=== PATIENT | female | born 1955 | race Caucasian/White ===

== ENCOUNTER 2018-07-11 06:24 | Outpatient (CLI) | payer OTHER, SELFPAY ==
[2018-07-12 13:10] LABS: Cholesterol 202 mg/dL (50-200); HDL Cholesterol 33 mg/dL (40-60); LDL CHOLESTEROL 145 mg/dL (<100); Triglyceride 146 mg/dL (30-150)
== END 2018-07-11 06:44 ==
PROVIDERS: PCP Family Medicine; Visit Provider Family Medicine
DX: E78.5 Hyperlipidemia, unspecified (principal)
CPT/HCPCS: 36415; 80061; 83721

== ENCOUNTER 2019-01-04 07:37 | Outpatient (CLI) | payer OTHER, SELFPAY ==
[2019-01-04 10:21] LABS: CREATININE 0.77 mg/dL (0.55-1.02); Calculated LDL 171; Cholesterol 238 mg/dL (50-200); HDL Cholesterol 33 mg/dL (40-60); Potassium 4.4 mmol/L (3.5-5.1); TSH (W/Ref FT4) 2.54 uIU/mL (0.358-3.74); Triglyceride 171 mg/dL (30-150)
== END 2019-01-04 07:57 ==
PROVIDERS: PCP Family Medicine; Visit Provider Family Medicine
DX: E03.9 Hypothyroidism, unspecified (principal); I10 Essential (primary) hypertension; E78.5 Hyperlipidemia, unspecified
CPT/HCPCS: 36415; 80061; 83721; 82565; 84132; 84443

== ENCOUNTER 2019-04-08 17:10 | Outpatient (REF) | payer OTHER, SELFPAY ==
--- NOTE | 2019-04-08 15:00 | PAPFT_PTH ---
PATIENT: Ling Byrd LOC: [facility] U#:[id number] AGE/SX: 64/F ROOM: RE04/08/[address]: SUPA Quesada : 1955 BED: DIS: 04/08/2019 SPEC #: [id number] RECD: 04/08/19 17:35 STATUS: EREN REChel #: [id number] SARAH: 04/08/19 15:[address]: Samia Jay DEPT: [facility] Cytology RECD BY: Marcelina Graham ENTERED: 04/08/19 17:36 SP TYPE: PAPFT SHANKAR DR: Elian Gamboa MD Tissues: 1 - CX/ENDOCX FOR PAP SMEARS Procedures: PAP THIN PREP/UVM Screening HPV DNA PROBE Comments: [id number]
== END 2019-04-08 17:30 ==
LOC: LBN 17:10
PROVIDERS: PCP Family Medicine; Visit Provider Nurse Practitioner Family
DX: Z12.4 Encounter for screening for malignant neoplasm of cervix (principal); Z11.51 Encounter for screening for human papillomavirus (HPV)
CPT/HCPCS: 88142; 87624

== ENCOUNTER 2019-05-01 02:07 | Outpatient (CLI) | payer OTHER, SELFPAY ==
--- NOTE | 2019-05-01 15:21 | DI.MAMMO_ITS ---
EXAM: MAMMO SCREENING CLINICAL HISTORY: Screening, Z12.31. TECHNIQUE: Mammograms were interpreted according to the usual protocol including computer analysis w [employer] system, tomosynthesis and C-view imaging. COMPARISON: Current examination compared with previous examinations including November 2016 FINDINGS: The breasts are of moderate density with fairly symmetrical distribution of fibroglandular tissue. No dominant mass or clumped microcalcification is identified in either breast. Current examination is c ompared with previous examinations including November 2016 and there has been no gross interval change in appearance in comparison with the previous studies. IMPRESSION: No specific evidence of malignancy at this time. Routine screening examinations are suggested at year ly intervals in this age group according to the ACS/ACR guidelines. Category 1, breast density catego ry B. BI-RADS Cat 1 - Negative Breast Density - Category B - Scattered areas of fibroglandular density
== END 2019-05-01 02:27 ==
PROVIDERS: PCP Family Medicine; Visit Provider Nurse Practitioner Family
DX: Z12.31 Encounter for screening mammogram for malignant neoplasm of breast (principal)
CPT/HCPCS: 77063; 77067

== ENCOUNTER 2019-05-01 11:58 | Outpatient (CLI) | payer OTHER, SELFPAY ==
--- NOTE | 2019-05-01 11:51 | DI.RAD_ITS ---
EXAM: XR SHOULDER LT COMPLETE 2+V INDICATION: L shoulder pain. COMPARISON: No exams were available for comparison TECHNIQUE: 2D digital imaging was performed. FINDINGS: Three views were obtained. There are moderate hypertrophic degenerative changes of the acromioclavic ular joint. Mild hypertrophic spurring also noted at the glenohumeral joint. No other significant b anton or soft tissue abnormality seen. IMPRESSION:
== END 2019-05-01 12:18 ==
PROVIDERS: PCP Family Medicine; Visit Provider Physician Assistant
DX: M25.512 Pain in left shoulder (principal); M19.012 Primary osteoarthritis, left shoulder
CPT/HCPCS: 73030

== ENCOUNTER 2019-07-15 03:03 | Outpatient (CLI) | payer OTHER, SELFPAY ==
[2019-07-16 10:26] LABS: Varicella IgG Antibody Positive (See Note)
== END 2019-07-15 03:23 ==
PROVIDERS: PCP Family Medicine; Visit Provider Family Medicine
DX: Z01.84 Encounter for antibody response examination (principal)
CPT/HCPCS: 36415; 86787

== ENCOUNTER 2020-01-19 01:27 | Outpatient (CLI) | payer OTHER, SELFPAY ==
[2020-01-19 09:55] LABS: Calculated LDL 162 mg/dL (<100); Cholesterol 218 mg/dL (<200); HDL Cholesterol 33 mg/dL (40-60); Triglyceride 115 mg/dL (<150)
== END 2020-01-19 01:47 ==
PROVIDERS: PCP Family Medicine; Visit Provider Family Medicine
DX: E78.5 Hyperlipidemia, unspecified (principal); E03.9 Hypothyroidism, unspecified
CPT/HCPCS: 36415; 80061; 84443

== ENCOUNTER 2020-05-19 00:59 | Outpatient (CLI) | payer OTHER, SELFPAY ==
--- NOTE | 2020-05-19 15:30 | DI.MAMMO_ITS ---
EXAM: MAMMO SCREENING CLINICAL HISTORY: screening TECHNIQUE: Mammograms were interpreted according to the usual protocol including computer analysis w [employer] CAD system, tomosynthesis and C-view imaging. COMPARISON: 2009. FINDINGS: The breasts are composed of mainly fatty density , Breast Density category A. No suspicious masses or suspicious microcalcifications are seen. No skin thickening or abnormal axillary lymph nodes are seen. There has been no significant change from prior exams. IMPRESSION: BI-RADS Category 1, Negative mammogram Yearly screening mammography is recommended. Breast Density - Category A, fatty density. A negative radiographic report should not delay biopsy if a dominant or clinically suspicious mass is present. Up to ten percent of cancers are not identified on mammography. A negative report may reinforce clinical impression. Adenosis and dense breasts may obscure an underlying neoplasm. False positive reports average 6 to 10%. Patient will receive a letter notifying them of these results.
== END 2020-05-19 01:19 ==
PROVIDERS: PCP Family Medicine; Visit Provider Nurse Practitioner Family
DX: Z12.31 Encounter for screening mammogram for malignant neoplasm of breast (principal)
CPT/HCPCS: 77063; 77067

== ENCOUNTER 2020-07-26 02:57 | Outpatient (CLI) | payer OTHER, SELFPAY ==
[2020-07-26 12:52] LABS: TSH 1.57 uIU/mL (0.36-3.74)
== END 2020-07-26 03:17 ==
PROVIDERS: PCP Family Medicine; Visit Provider Family Medicine
DX: E03.9 Hypothyroidism, unspecified (principal)
CPT/HCPCS: 36415; 84443

== ENCOUNTER 2020-10-05 13:23 | Outpatient (CLI) | payer MEDICARE, OTHER, SELFPAY ==
[2020-10-05 14:19] LABS: D-Dimer 348 ng/mlFEU (<500)
== END 2020-10-05 13:24 | disposition home or self-care (01) ==
LOC: LBO 13:23
PROVIDERS: PCP Family Medicine; Visit Provider Family Medicine
DX: M79.661 Pain in right lower leg (principal)
CPT/HCPCS: 36415; 85379

== ENCOUNTER 2021-03-03 04:44 | Outpatient (CLI) | payer MEDICARE, OTHER, SELFPAY ==
[2021-03-03 08:57] LABS: CREATININE 0.8 mg/dL (0.55-1.02); Calculated LDL 162 mg/dL (<100); Cholesterol 220 mg/dL (<200); HDL Cholesterol 33 mg/dL (40-60); Potassium 4.2 mmol/L (3.5-5.1); Triglyceride 126 mg/dL (<150)
== END 2021-03-03 04:45 | disposition home or self-care (01) ==
LOC: LBO 04:44
PROVIDERS: PCP Family Medicine; Visit Provider Family Medicine
DX: E78.5 Hyperlipidemia, unspecified (principal); I10 Essential (primary) hypertension; E11.65 Type 2 diabetes mellitus with hyperglycemia
CPT/HCPCS: 36415; 80061; 82565; 84132

== ENCOUNTER 2021-10-18 03:02 | Outpatient (CLI) | payer MEDICARE, OTHER, SELFPAY ==
[2021-10-18 08:29] LABS: Anion Gap 8.6 mmol/L (3-11); BUN 13 mg/dL (7-18); CO2 27.4 mmol/L (21.0-32.0); CREATININE 0.7 mg/dL (0.55-1.02); Calcium 9.2 mg/dL (8.5-10.1); Calculated LDL 168 mg/dL (<100); Chloride 100 mmol/L (98-107); Cholesterol 232 mg/dL (<200); Glucose 103 mg/dL (74-106); HDL Cholesterol 37 mg/dL (40-60); Potassium 4.2 mmol/L (3.5-5.1); Sodium 136 mmol/L (136-145); TSH (W/Ref FT4) 0.44 uIU/mL (0.36-3.74); Triglyceride 139 mg/dL (<150)
== END 2021-10-18 03:03 | disposition home or self-care (01) ==
LOC: LBO 03:02
PROVIDERS: PCP Family Medicine; Visit Provider Family Medicine
DX: E03.9 Hypothyroidism, unspecified (principal); E78.5 Hyperlipidemia, unspecified; E87.1 Hypo-osmolality and hyponatremia
CPT/HCPCS: 36415; 80048; 80061; 84443

== ENCOUNTER 2022-02-07 02:47 | Outpatient (CLI) | payer MEDICARE, OTHER, SELFPAY ==
[2022-02-07 09:34] LABS: ALT 28 U/L (14-59); AST 18 U/L (15-37); Calculated LDL 108 mg/dL (<100); Cholesterol 164 mg/dL (<200); HDL Cholesterol 41 mg/dL (40-60); Triglyceride 75 mg/dL (<150)
== END 2022-02-07 02:48 | disposition home or self-care (01) ==
LOC: LBO 02:47
PROVIDERS: PCP Family Medicine; Visit Provider Family Medicine
DX: E78.5 Hyperlipidemia, unspecified (principal); K76.0 Fatty (change of) liver, not elsewhere classified
CPT/HCPCS: 36415; 80061; 84450; 84460

== ENCOUNTER 2022-03-28 12:49 | Outpatient (CLI) | payer MEDICARE, OTHER, SELFPAY ==
--- NOTE | 2022-03-28 12:45 | RT.EKG_ITS ---
APPROVED REPORT Exam: Resting ECG Reason for Exam: Pre - Op emergency surgery Patient Location: O HR:81 bpm ECG Measurements Heart Rate 81 AXIS WA 160 P 73 QRSd 90 QRS 34 QT 382 T 55 QTc 444 Conclusion Sinus rhythm...normal P axis, V-rate 50- 99 Baseline wander in lead(s) V1 Otherwise normal
== END 2022-03-28 12:50 | disposition home or self-care (01) ==
LOC: DI.CM 12:49
PROVIDERS: PCP Family Medicine; Visit Provider Family Medicine
DX: Z01.810 Encounter for preprocedural cardiovascular examination (principal)
CPT/HCPCS: 93010

== ENCOUNTER → 2022-06-16 00:24 | Outpatient (CLI) | payer MEDICARE, SELFPAY ==
--- OUTSIDE RECORDS SUMMARY | 2022-06-16 00:25 | XMS_ITS | Encounter Summary ---
:1955 Author Organization [facility] [place] [address] Care Team Providers Name Role Phone Elian Gamboa MD Primary Care Provider [phone] Reason for Visit Reason Comments Annual Exam Encounter Details Date Type Department Care Team Description 03/17/2022 Office Visit Dermatology at [facility], Seborrh eic keratosis; Corey ZAMAN Nevus [address] [facility] [address] B DERMATOLOGY [place], [place] [id number] [phone] Social History Tobacco Use Types Packs/Day Years Used Date Smoking Tobacco: Never Smokeless Tobacco: Never Sex Assigned at Date Recorded Not on file documented as of this encounter Progress Notes Al[facility]so Lacey MD - 03/17/2022 1:45 PM EDT Problem: 1. ??Follow-up repeat skin checkup 2. ??History of granuloma annulare 3. ??Family history of diabetes but no personal history of same 4. Patient worked for 27 years in [employer] at [employer] Ling follows up after last being seen a year ago. She has noted a new lesion on the left upper inner arm. She continues to have her granuloma annulare. Physical examination reveals a pleasant 67-year-old woman who has a benign examination of the head and neck the chest the back the hands on forearms thighs and calves. She does have a verruca vulgaris present on the left left inner arm near her elbow. Benign skin examination 1. Patient reassured about her benign skin examination 2. Continue service precautions and using SPF 70 Neutrogena sunscreen 3. Return to clinic in a year for recheck Granuloma annulare 1. Less prominent with her summer shetty 2. Asymptomatic, we will continue to follow this clinically Verruca vulgaris left upper inner arm near elbow 1. LN2 x3 applied to site CC: Elian Gamboa MD documented in this encounter Plan of Treatment Upcoming Encounters Date Type Specialty Care Team Description 03/19/2023 Office Visit Dermatology Alfonso Lacey MD [address] [facility] DERMATOLOGY [place], [place] [address] (Wo rk) documented as of this encounter Visit Diagnoses Diagnosis Seborrheic keratosis Other seborrheic keratosis Nevus Benign neoplasm of skin, site unspecifie d documented in this encounter Care Teams Machine Puller Relationship Specialty Start Date End Date Elian Gamboa MD PCP - General Family Medicine 11/21/[address] [place] [address] [address] [place] [address] documented as of this encounter
--- OUTSIDE RECORDS SUMMARY | 2022-06-16 00:25 | XMS_ITS | Encounter Summary ---
:1955 Author Organization [facility] [place] [address] Care Team Providers Name Role Phone Elian Gamboa MD Primary Care Provider [phone] Reason for Visit Reason Comments Follow-up Skin Check Encounter Details Date Type Department Care Team Description 11/21/2018 Office Visit Dermatology at [facility] Lacey Granulo ma annulare; Corey ZAMAN Nevus [address] [facility] Waldo B DERMATOLOGY [place], [place] [id number] [phone] Social History Tobacco Use Types Packs/Day Years Used Date Smoking Tobacco: Never Smokeless Tobacco: Never Sex Assigned at Date Recorded Not on file documented as of this encounter Progress Notes Alfonso Lacey MD - 11/21/2018 4:15 PM EDT Problem: 1. Follow-up repeat skin checkup 2. History of granuloma annulare 3. Family history of diabetes but no personal history of same Ling follows up and is doing well. She did have a general skin checkup. She still has granulomaannulare which I seen her for on again off again over the years. At times we have injected with Kenalog. I believe I first saw her about 2000 for this condition. She is got back from a trip to the [facility] and is quite hand. Physical examination was a pleasant 63-year-old man who is benign examination of the face the neck the chest the back the hands the arms informs thighs and the cast but there is no evidence of any malignant lesions. He does have the papular GA widely on the dorsum of her feet on her legs on the medialknees but some patches also on the flanks. On the right dorsal hand, where I have injected with Kenalog in the past, she has a faint shadow of GI and one small area with a an elevated margin but this is not apparent and not bothersome to the patient today. Skin examination is otherwise benign. Assessment plan: Benign skin examination 1. Patient reassured about her benign skin examination 2. Continue sun protection precautions 3. Patient stresses that she did go through two bottles of high SPF sunscreen while on her trip. 4. Return the clinic in another 2 to 3 years for repeat skin check. Granuloma annulare 1. Reassured the patient 2. Again discussed etiology pathogenesis and expected time to resolution although she has had it nowfor 20 years is hard to predict when this may resolve 3. Would not recommend any injection or topical corticosteroids for it. 4. Discussed how her shetty from her trip to the [facility] may now actually put into remission. 5. Again discussed the association of GA with diabetes. Patient has been tested and has normal bloodsugars although there is a family history of diabetes. CC: Elian Gamboa MD documented in this encounter Plan of Treatment Upcoming Encounters Date Type Specialty Care Team Description 03/19/2023 Office Visit Dermatology Alfonso Lacey MD [address] [facility] DERMATOLOGY [place], [place] [address] (Wo rk) documented as of this encounter Visit Diagnoses Diagnosis Granuloma annulare Other specified erythematous condition Nevus Benign neoplasm of skin, site unspecifie d documented in this encounter Care Teams Sign Poster Relationship Specialty Start Date End Date Elian Gamboa MD PCP - General Family Medicine 11/21/[address] [place] [address] documented as of this encounter
--- OUTSIDE RECORDS SUMMARY | 2022-06-16 00:25 | XMS_ITS | Encounter Summary ---
:1955 Author Organization [facility] [place] [address] Care Team Providers Name Role Phone Elian Gamboa MD Primary Care Provider Reason for Visit Reason Comments Skin Check Encounter Details Date Type Department Care Team Description 06/10/2021 Office Visit Dermatology at [facility], Seborrh eic keratosis; Corey ZAMAN Nevus [address] [facility] [address] B DERMATOLOGY [place], [place] [phone] Social History Tobacco Use Types Packs/Day Years Used Date Smoking Tobacco: Never Smokeless Tobacco: Never Sex Assigned at Date Recorded Not on file documented as of this encounter Progress Notes Alfonso Lacey MD - 06/10/2021 3:45 PM EST Problem: 1. Follow-up repeat skin checkup 2. History of granuloma annulare 3. Family history of diabetes but no personal history of same ?? Ling follows up and is now 66. She continues to note granuloma annulare on her lower extremities and on her about her abdomen and torso in an almost circumferential pattern, but it has clear on her elbows and forearms. She not noted any particular lesions of concern. She does shetty 10 before she goes on vacations in the summer. Physical examination reveals a pleasant 66-year-old woman who has a benign examination of the head and the neck the chest the back the hands the arms forearms thighs and calves. She has involvement of GA diffusely around her abdomen with primarily macules in annular patterns appearing much is post infl ammatory hyperpigmentation. She has additional involvement with GA on her thighs and the calves. Shehas a benign examination and no evidence of skin cancer today. Assessment and plan: Benign skin examination 1. Patient reassured about her benign skin examination 2. Continue sun protection precautions using SPF 70 Neutrogena sunscreen. 3. Return to clinic as needed for new lesions concerns. Granuloma annulare 1. Reassured patient 2. Discussed the etiology pathogenesis and the long time sometimes to resolution. 3. I would continue not to recommend any intervention steroids or oral therapies for these as it is entirely asymptomatic, and patient agrees. CC: Elian Gamboa MD documented in this encounter Plan of Treatment Upcoming Encounters Date Type Specialty Care Team Description 03/19/2023 Office Visit Dermatology Alfonso Lacey MD [address] [facility] DERMATOLOGY [place], [place] [address] (Wo rk) documented as of this encounter Visit Diagnoses Diagnosis Seborrheic keratosis Other seborrheic keratosis Nevus Benign neoplasm of skin, site unspecifie d documented in this encounter Care Teams Household Cook Relationship Specialty Start Date End Date Elian Gamboa MD PCP - General Family Medicine 11/21/[address] [place] [address] documented as of this encounter
--- OUTSIDE RECORDS SUMMARY | 2022-06-16 00:26 | XMS_ITS | Encounter Summary ---
:1955 Author Organization [facility] Address [address] [place] [address] Care Team Providers Name Role Phone Unavailable Primary Care Provider Unavailable Encounter Details Date Type Department Care Team Description 04/26/2005 Results Only [place] - Aundrea Aaron od, Samia Johnson, PURCHASE PRICE ANALYST conversion [address] [place] [phone] (Wo rk) Social History Tobacco Use Types Packs/Day Years Used Date Smoking Tobacco: Never Assessed Sex Assigned at Date Recorded Not on file documented as of this encounter Plan of Treatment Not on filedocumented as of this encounter Procedures Procedure Name Priority Date/Time Associated Diagnosis Comme nts CYTOPATHOLOGY Routine 04/26/2005 0:00 EDT Results for this procedure are i n the results section . documented in this encounter Results CYTOPATHOLOGY (04/26/2005 0:00 EDT) Component Value Ref Test Analysis Performed At [facility] Range Method Time Signature Pathology CYTOPATHOLOGY REPORT [facility] Report: [facility] Reports generated via electronic interface contain original data; however they are lacking the format of the original report. Caution should be taken when reading/interpreting unformatte d reports. Name: ? NAOMI BYRD ? Accession #: ? [id number] : ? 1955 (Age: 50) ??F ?Collect Date: ? 04/26/2005 Location: ? [facility] ? Receive Date: ? 04/28/2005 Provider: ?SAMIA JAY PURCHASE PRICE ANALYST Copy to: ? Specimen/Source: ? ThinPrep Pap Test, Cervix/Endocervix, processed on [employer] ThinPrep Imaging System, with manual evaluation Last Menstrual Period: ? 03/19/04 Other: ? Additional clinical information: 04/20/03 neg endometr ial cells present in a woman equal to or greater than age 40. 04/02 neg. HPVA - HPV testing requested if ASC-US on the current ThinPr ep Pap test. ? SPECIMEN ADEQUACY ? Satisfactory for Evaluation - transformation zone component present GENERAL CATEGORIZATION ? Negative for Intraepithelial Lesion or Malignancy ? Document reviewed and electronically signed by: ? Mathew Jordan, YOLETTE(ASCP) ? Report Date: ??05/05/2005 07:21 End of Report Specimen (Source) Anatomical Location Collection Method / Collectio n Time Received Time / Laterality Volume 04/26/2005 04/28/2005 Samia Jay [facility] PATHOLOGY ORDERABLES Performing Organization Address City/State/ZIP Code Phon e Number [facility] [address] [place] [address] SERVICES [facility] [address] [place] [address] documented in this encounter Visit Diagnoses Not on filedocumented in this encounter
--- OUTSIDE RECORDS SUMMARY | 2022-06-16 00:26 | XMS_ITS | Encounter Summary ---
:1955 Author Organization [facility] Address [address] [place] [address] Care Team Providers Name Role Phone Unavailable Primary Care Provider Unavailable Encounter Details Date Type Department Care Team Description 04/16/2000 Results Only [facility] - Chris Humphreys MD conversion [address] [place] [address] Social History Tobacco Use Types Packs/Day Years Used Date Smoking Tobacco: Never Assessed Sex Assigned at Date Recorded Not on file documented as of this encounter Plan of Treatment Not on filedocumented as of this encounter Procedures Procedure Name Priority Date/Time Associated Diagnosis Comme nts CYTOPATHOLOGY Routine 04/16/2000 0:00 EDT Results for this procedure are i n the results section . documented in this encounter Results CYTOPATHOLOGY (04/16/2000 0:00 EDT) Component Value Ref Test Analysis Performed At [facility] Method Time Signature Pathology CYTOPATHOLOGY REPORT [facility] Report: [facility] Reports generated via electronic interface contain original data; however they are lacking the format of the original report. Caution should be taken when reading/interpreting unformatte d reports. Name: ? NAOMI BYRD ? Accession #: ? [id number] : ? 1955 (Age: 45) ??F ?Collect Date: ? 04/16/2000 Location: ? [facility] ? Receive Date: ? 04/17/2000 Provider: ?CHRIS AGUILAR MD Copy to: ? Specimen/Source: ?Conventional Pap Test, Cervix/En docervix Last Menstrual Period: ? 03/30/00 Previous Gynecologic Pathology: ? Yes Other: ? Additional clinical information: Irregular periods Additional clinical information: Fibroid uterus ? SPECIMEN ADEQUACY ? Satisfactory for evaluation. GENERAL CATEGORIZATION ? Within Normal Limits ? Document reviewed and electronically signed by: ? YOLETTE Anderson(ASCP) ? Report Date: ??04/17/2000 13:50 End of Report Specimen (Source) Anatomical Location Collection Method / Collectio n Time Received Time / Laterality Volume 04/16/2000 04/17/2000 Chris Aguilar MD PATHOLOGY ORDERABLES Performing Organization Address City/State/ZIP Code Phon e Number [facility] [address] [place] [address] SERVICES [facility] [address] [place] [address] documented in this encounter Visit Diagnoses Not on filedocumented in this encounter
--- OUTSIDE RECORDS SUMMARY | 2022-06-16 00:26 | XMS_ITS | Encounter Summary ---
:1955 Author Organization [facility] Address [address] [place] [address] Care Team Providers Name Role Phone Unavailable Primary Care Provider Unavailable Encounter Details Date Type Department Care Team Description 04/25/2001 Results Only [facility] - Meenu Johnson NP conversion [address] [place] [address] Social History Tobacco Use Types Packs/Day Years Used Date Smoking Tobacco: Never Assessed Sex Assigned at Date Recorded Not on file documented as of this encounter Plan of Treatment Not on filedocumented as of this encounter Procedures Procedure Name Priority Date/Time Associated Diagnosis Comme nts CYTOPATHOLOGY Routine 04/25/2001 0:00 EDT Results for this procedure are i n the results section . documented in this encounter Results CYTOPATHOLOGY (04/25/2001 0:00 EDT) Component Value Ref Test Analysis Performed At [facility] Method Time Signature Pathology CYTOPATHOLOGY REPORT [facility]CCA Report: [facility] Reports generated via electronic interface contain original data; however they are lacking the format of the original report. Caution should be taken when reading/interpreting unformatte d reports. Name: ? NAOMI BYRD ? Accession #: ? [id number] : ? 1955 (Age: 46) ??F ?Collect Date: ? 04/25/2001 Location: ? [facility] ? Receive Date: ? 04/26/2001 Provider: ?MEENU M [facility] N[facility]SE PRACTITIONER Copy to: ? Specimen/Source: ?ThinPrep Pap Test, Cervix/Endoce rvix Last Menstrual Period: ? 01/27 ? SPECIMEN ADEQUACY ? Satisfactory for evaluation. GENERAL CATEGORIZATION ? Within Normal Limits ? Document reviewed and electronically signed by: ? YOLETTE Norris(ASCP) ? Report Date: ??04/29/2001 13:13 End of Report Specimen (Source) Anatomical Location Collection Method / Collectio n Time Received Time / Laterality Volume 04/25/2001 04/26/2001 Meenu Madison NP PATHOLOGY ORDERABLES Performing Organization Address City/State/ZIP Code Phon e Number [facility] [address] [place] [phone] SERVICES [facility] [address] [place] [address] documented in this encounter Visit Diagnoses Not on filedocumented in this encounter
--- OUTSIDE RECORDS SUMMARY | 2022-06-16 00:26 | XMS_ITS | Encounter Summary ---
:1955 Author Organization [facility] Address [address] [place] [address] Care Team Providers Name Role Phone Unavailable Primary Care Provider Unavailable Encounter Details Date Type Department Care Team Description 05/25/2008 Before PRISM Converted [facility], Visit (Maple) Maple conversion POWER REACTOR SUPERVISOR [address] [place] [address] Social History Tobacco Use Types Packs/Day Years Used Date Smoking Tobacco: Never Assessed Sex Assigned at Date Recorded Not on file documented as of this encounter Plan of Treatment Not on filedocumented as of this encounter Procedures Procedure Name Priority Date/Time Associated Diagnosis Comme nts CYTOPATHOLOGY Routine 05/25/2008 0:00 EDT Results for this procedure are i n the results section . documented in this encounter Results CYTOPATHOLOGY (05/25/2008 0:00 EDT) Component Value Ref Test Analysis Performed At [facility] Method Time Signature Pathology CYTOPATHOLOGY REPORT ? [facility] Report: ? [facility] Reports generated via [employer] interface contain original data; ? however they are lacking the format of the original report. ? Caution should be taken when reading/interpreting unformatted reports. ? Name: ? RITO, JOEY E ? Accession #: ? [id number] ? : ? 1955 (Age: 53) ??F ?Collect Date: ? 05/25/2008 ? Location: ? [facility] ? Receive Date: ? 05/27/2008 ? Provider: ?MEENU M RO WLETT POWER REACTOR SUPERVISOR ? Copy to: ? Specimen/Source: ? Pap Test, Cervix/Endocervix, ThinPrep Imaging System ? with manual evaluation ? Last Menstrual Period: ? 8/21/04 ? SPECIMEN ADEQUACY ? Satisfactory for Eval uation ? - transformation zone compon ent present ? GENERAL CATEGORIZATION ? Negative for Intraepi thelial Lesion or Malignancy ? Document reviewed and electr onically signed by: ? Monica [place](ASCP) ? Report Date: ??05/29/ 2008 12:27 ? End of Report ? Specimen (Source) Anatomical Location Collection Method / Collectio n Time Received Time / Laterality Volume 05/25/2008 05/27/2008 Meenu Madison POWER REACTOR SUPERVISOR PATHOLOGY ORDERABLES Performing Organization Address City/State/ZIP Code Phon e Number [facility] [address] [place] [phone] SERVICES [facility] [address] [place] [address] documented in this encounter Visit Diagnoses Not on filedocumented in this encounter
--- OUTSIDE RECORDS SUMMARY | 2022-06-16 00:26 | XMS_ITS | Encounter Summary ---
:1955 Author Organization [facility] Address [address] [place] [address] Care Team Providers Name Role Phone Unknown, Provider Primary Care Provider Encounter Details Date Type Department Care Team Description 04/08/2019 Results Only [facility]- [facility] Samia Jay, [facility] [phone] [place] [address] [place] [address] (Wo rk) Social History Tobacco Use Types Packs/Day Years Used Date Smoking Tobacco: Never Assessed Sex Assigned at Date Recorded Not on file documented as of this encounter Plan of Treatment Not on filedocumented as of this encounter Procedures Procedure Name Priority Date/Time Associated Diagnosis Comme nts PAP TEST- RESULT Routine 04/08/2019 0:00 EDT Resu lts for this ONLY procedure are i n the results section. documented in this encounter Results PAP TEST- RESULT ONLY (04/08/2019 0:00 EDT) Component Value Ref Test Analysis Performed At [facility] Range Method Time Signature Pathology CYTOPATHOLOGY REPORT [facility] MEDIC AL Report: CENTER Reports generated via electronic interface contain origina l data; LABORATORY however they are lacking the format of the original report. SERVICES Caution should be taken when reading/interpreting unformatte d reports. Name: ? JOEY BYRD ? Accession #: ? [id number] ? : ? 1955 (Age: [age]) ??F ?Collect Date: ? 04/08/2019 ? Location: ? [facility] ? Receive Date: ? 04/09/2019 ? Provider: SAMIA JAY CRIMINAL INVESTIGATOR CUSTOMS Copy to: CASIMIRO CORRALES MD ? Final Report SPECIMEN ADEQUACY ? Satisfactory for Evaluation - assessment of transformation zone component not appl icable ( e.g. atrophy, vaginal sample, hysterectomy) GENERAL CATEGORIZATION ? Negative for Intraepithelial Lesion or Malignancy ?? Last Menstrual Period: 2004 Specimen/Source: ??Pap Test, Cervix, ThinPrep Imaging System with manual evaluation Document reviewed and electronically signed by: ? YOLETTE Singh(ASCP) ? Report ??Date: 04/14/2019 11:10 HPV with Pap Test ? Date Ordered: ? 04/14/2019 ? Status: ?? Signed Out ?Date Complete: ? 04/15/2019 ? By: ??System I nterface ? Date Reported: ? 04/15/2019 ? Interpretation RESULT: Negative for HPV. No E6 or E7 mRNA is detected from HPV types 16,18,31,33,35, 39,45,51,52,56,58,59,66, and 68 by level vial grinder mediated amplification. Comments Document reviewed and electronically signed by: ? System Interface ? Report date: 04/15/2019 By the signature above, the attending physician certifies th at he/she has personally conducted a gross and/or microscopic examin ation of the described specimens and rendered or confirmed the above diagnosis. End of Report Specimen (Source) Anatomical Location Collection Method / Collectio n Time Received Time / Laterality Volume 04/08/2019 04/09/2019 Samia Jay CRIMINAL INVESTIGATOR CUSTOMS PATHOLOGY ORDERABLES Performing Organization Address City/State/ZIP Code Phon e Number [facility] [address] [place] [address] SERVICES documented in this encounter Visit Diagnoses Not on filedocumented in this encounter Care Teams Mobile Therapist Relationship Specialty Start Date End Date Unknown, Provider, PCP - General 06/08/15 documented as of this encounter
--- OUTSIDE RECORDS SUMMARY | 2022-06-16 00:26 | XMS_ITS | Encounter Summary ---
:1955 Author Organization [facility] Address [address] [place] [address] Care Team Providers Name Role Phone Unavailable Primary Care Provider Unavailable Encounter Details Date Type Department Care Team Description 01/01/2015 Results Only [facility] Samia Jay, [facility] [phone] [facility] [place] [address] (Wo rk) Social History Tobacco Use Types Packs/Day Years Used Date Smoking Tobacco: Never Assessed Sex Assigned at Date Recorded Not on file documented as of this encounter Plan of Treatment Not on filedocumented as of this encounter Procedures Procedure Name Priority Date/Time Associated Diagnosis Comme nts PAP TEST- RESULT Routine 01/01/2015 0:00 EDT Resu lts for this ONLY procedure are i n the results section. documented in this encounter Results PAP TEST- RESULT ONLY (01/01/2015 0:00 EDT) Component Value Ref Test Analysis Performed At [facility] Range Method Time Signature Pathology CYTOPATHOLOGY REPORT [facility] AL Report: CENTER Reports generated via electronic interface contain origina l data; LABORATORY however they are lacking the format of the original report. SERVICES Caution should be taken when reading/interpreting unformatte d reports. Name: ? JOEY YBRD ? Accession #: ? [id number] ? : ? 1955 (Age: 5 0) ??F ?Collect Date: ? 2014 ? Location: ? [facility] ? Receive Date: ? 01/04/2015 ? Provider: SAMIA COWART Copy to: KRISTEN ROSS MD ? Final Report SPECIMEN ADEQUACY ? Satisfactory for Evaluation - assessment of transformation zone component not appl icable ( e.g. atrophy, vaginal sample, hysterectomy) GENERAL CATEGORIZATION ? Negative for Intraepithelial Lesion or Malignancy ?? Last Menstrual Period: 2004 Specimen/Source: ??Pap Test, Cervix/Endocervix, ThinPr ep Imaging System with manual evaluation Document reviewed and electronically signed by: ? YOLETTE Singh(ASCP) ? Report ??Date: 01/08/2015 13:07 HPV with Pap Test ? Date Ordered: ? 01/08/2015 ? Status: ?? Signed Out ?Date Complete: ? 01/12/2015 ? By: ??System I nterface ? Date Reported: ? 01/12/2015 ? Interpretation RESULT: Negative for HPV. No E6 or E7 mRNA is detected from HPV types 16,18,31,33,35, 39,45,51,52,56,58,59,66, and 68 by skin specialist mediated amplification. Comments Document reviewed and electronically signed by: ? System Interface ? Report date: 01/12/2015 By the signature above, the attending physician certifies th at he/she has personally conducted a gross and/or microscopic examin ation of the described specimens and rendered or confirmed the above diagnosis. End of Report Specimen (Source) Anatomical Location Collection Method / Collectio n Time Received Time / Laterality Volume 01/01/2015 01/04/2015 Samia COWART PATHOLOGY ORDERABLES Performing Organization Address City/State/ZIP Code Phon e Number [facility] [address] [place] [address] SERVICES documented in this encounter Visit Diagnoses Not on filedocumented in this encounter
--- OUTSIDE RECORDS SUMMARY | 2022-06-16 00:26 | XMS_ITS | Encounter Summary ---
:1955 Author Organization [facility] Address [address] [place] [address] Care Team Providers Name Role Phone Unknown, Provider Primary Care Provider Encounter Details Date Type Department Care Team Description 07/15/[address] [facility] Unknown, Provider, Pathology & Laboratory [facility] [address] [place] [place] [address] Social History Tobacco Use Types Packs/Day Years Used Date Smoking Tobacco: Never Assessed Sex Assigned at Date Recorded Not on file documented as of this encounter Plan of Treatment Not on filedocumented as of this encounter Procedures Procedure Name Priority Date/Time Associated Diagnosis Comme nts VARICELLA IGG Routine 07/15/2019 7:35 EST Results for this ANTIBODY procedure are i n the results section. documented in this encounter Results VARICELLA IGG ANTIBODY (07/15/2019 7:35 EST) Analysis Performed At [facility] Time Signature Varicella IgG Positive See Note 07/16/2019 [facility] MEDICAL Ab 10:22 EST CENTER LABORATORY SERVICES Comment: Presence of detectable Varicell a Zoster virus IgG antibodies. Specimen Anatomical Collection Method Collection Time Receive d Time (Source) Location / / Volume Laterality Blood VENOUS BLOOD / 07/15/2019 7:35 07/15/2019 Unknown EST 16:49 EST Provider Unknown IMMUNOLOGY AND SEROLOGY EARLENE FINE Performing Organization Address City/State/ZIP Code Phon e Number [facility] [address] [place] [address] SERVICES documented in this encounter Visit Diagnoses Not on filedocumented in this encounter Care Teams Cable Inspector Relationship Specialty Start Date End Date Unknown, Provider, PCP - General 06/08/15 documented as of this encounter
--- OUTSIDE RECORDS SUMMARY | 2022-06-16 00:26 | XMS_ITS | Encounter Summary ---
:1955 Author Organization [facility] Address [address] [place] [address] Care Team Providers Name Role Phone Unavailable Primary Care Provider Unavailable Encounter Details Date Type Department Care Team Description 06/07/2009 Orders Only [facility] Laboratory Sadaf Madison NP Services - [place] [address] [address] Social History Tobacco Use Types Packs/Day Years Used Date Smoking Tobacco: Never Assessed Sex Assigned at Date Recorded Not on file documented as of this encounter Plan of Treatment Not on filedocumented as of this encounter Procedures Procedure Name Priority Date/Time Associated Comments Diagnosis HPV DETECTION, HIGH Routine 06/07/2009 10:26 Resu lts for this RISK TYPES EST procedure are i n the results section. CYTOPATHOLOGY Routine 06/07/2009 0:00 Results for this EST procedure are i n the results section. documented in this encounter Results HUMAN PAPILLOMA VIRUS DNA TEST (06/07/2009 10:26 EST) [facility] Optimal Radiology Method Time Signature Specimen Cervix, [facility] Description ThinPrep [facility] vial Result Negative for [facility] HPV types [facility] 16, 18, 31, 33, 35, 39, 45, 51, 52, 56, 58, 59, and 68. Report Status Final CROSS FORK 06/23/2009 [facility] Specimen Anatomical Collection Method Collection Time Receive d Time (Source) Location / / Volume Laterality 06/07/2009 10:26 06/17/2009 EST 10:26 EST Meenu Madison NP MICROBIOLOGY - GENERAL ORDER NABILA Performing Organization Address City/State/ZIP Code Phon e Number [facility] [address] [place] [address] SERVICES [facility] [address] [place] [address] CYTOPATHOLOGY (06/07/2009 0:00 EST) Component Value Ref Test Analysis Performed At Patholo gist Range Method Time Signature Pathology CYTOPATHOLOGY REPORT ? [facility] Report: ? [facility] Reports generated via electr onic interface contain original data; ? however they are lacking the format of the original report. ? Caution should be taken when reading/interpreting unformatted reports. ? Name: ? JOEY BYRD ? Accession #: ? [id number] ? : ? 1955 (Age: 54) ??F ?Collect Date: ? 06/07/2009 ? Location: ? [facility] ? Receive Date: ? 06/09/2009 ? Provider: ?MEENU M RO WLETT COOPERATIVE EDUCATION DIRECTOR ? Copy to: ? Specimen/Source: ? Pap Test, Cervix/Endocervix, ThinPrep Imaging System ? with manual evaluation ? Last Menstrual Period: ? Other: ? HPVDX - HPV testing requeste d regardless of diagnosis on current ThinPrep Pap ?? test. ? SPECIMEN ADEQUACY ? Satisfactory for Eval uation ? - transformation zone compon ent present ? GENERAL CATEGORIZATION ? Negative for Intraepi thelial Lesion or Malignancy ? Document reviewed and electr onically signed by: ? Lynan Jordi, CT(ASCP) ? Report Date: ??11/18/ 2009 13:09 ? End of Report ? Specimen (Source) Anatomical Location Collection Method / Collectio n Time Received Time / Laterality Volume 06/07/2009 06/09/2009 Meenu Madison COOPERATIVE EDUCATION DIRECTOR PATHOLOGY ORDERABLES Performing Organization Address City/State/ZIP Code Phon e Number [facility] [address] [place] [address] SERVICES [facility] [address] [place] [phone] documented in this encounter Visit Diagnoses Not on filedocumented in this encounter
--- OUTSIDE RECORDS SUMMARY | 2022-06-16 00:26 | XMS_ITS | Encounter Summary ---
:1955 Author Organization [facility] Address [address] [place] [address] Care Team Providers Name Role Phone Unavailable Primary Care Provider Unavailable Encounter Details Date Type Department Care Team Description 04/21/2004 Results Only [facility] - Meenu Johnson NP conversion [address] [place] [address] Social History Tobacco Use Types Packs/Day Years Used Date Smoking Tobacco: Never Assessed Sex Assigned at Date Recorded Not on file documented as of this encounter Plan of Treatment Not on filedocumented as of this encounter Procedures Procedure Name Priority Date/Time Associated Diagnosis Comme nts CYTOPATHOLOGY Routine 04/21/2004 0:00 EDT Results for this procedure are i n the results section . documented in this encounter Results CYTOPATHOLOGY (04/21/2004 0:00 EDT) Component Value Ref Test Analysis Performed At [facility] Method Time Signature Pathology CYTOPATHOLOGY REPORT [facility] Report: [facility] Reports generated via electronic interface contain original data; however they are lacking the format of the original report. Caution should be taken when reading/interpreting unformatte d reports. Name: ? NAOMI BYRD ? Accession #: ? [id number] : ? 1955 (Age: 49) ??F ?Collect Date: ? 04/21/2004 Location: ? [facility] ? Receive Date: ? 04/25/2004 Provider: ?MEENU M LILLIANA ESTATE PLANNER Copy to: ? Specimen/Source: ?ThinPrep Pap Test, Cervix/Endoce rvix Last Menstrual Period: ? 03/20/04 Previous Gynecologic Pathology: ? Yes: 04/20/03 Neg. endometria l cells present in a womed equal to or greater than age 40 ? SPECIMEN ADEQUACY ? Satisfactory for Evaluation - transformation zone component present GENERAL CATEGORIZATION ? Negative for Intraepithelial Lesion or Malignancy ? Document reviewed and electronically signed by: ? YOLETTE Giron(ASCP) ? Report Date: ??04/28/2004 11:51 End of Report Specimen (Source) Anatomical Location Collection Method / Collectio n Time Received Time / Laterality Volume 04/21/2004 04/25/2004 Meenu Madison NP PATHOLOGY ORDERABLES Performing Organization Address City/State/ZIP Code Phon e Number [facility] [address] [place] [address] SERVICES [facility] [address] [place] [address] documented in this encounter Visit Diagnoses Not on filedocumented in this encounter
--- OUTSIDE RECORDS SUMMARY | 2022-06-16 00:26 | XMS_ITS | Clinical Summary ---
:1955 Author Organization [facility] Address [address] [place] [address] Care Team Providers Name Role Phone Unknown, Provider Primary Care Provider Social History Tobacco Use Types Packs/Day Years Used Date Smoking Tobacco: Never Assessed Sex Assigned at Date Recorded Not on file Plan of Treatment Health Maintenance Due Date Last Done Comments Hepatitis C Screen 1955 COVID-19 Vaccine (#1) 1955 Fall Risk Screening 2019 Care Teams Laser Machine Operator Relationship Specialty Start Date End Date Unknown, Provider, PCP - General 06/08/15
--- OUTSIDE RECORDS SUMMARY | 2022-06-16 00:26 | XMS_ITS | Encounter Summary ---
:1955 Author Organization [place] [address] Care Team Providers Name Role Phone Marybeth Torres MD Primary Care Provider Reason for Visit Reason Comments Skin Check Follow-up Consultation (Routine) - Specialty Diagnoses / Procedures Referred By Contact Refer red To Contact Dermatology Diagnoses Granuloma annulare Kori Loaiza APRN Hammer, Charles J, MD Procedures Granuloma annulare [address] DERMATOLOGY [place], [place] [address] [place] [address] Fax: Referral ID Status Reason Start Date Expiration Date Visits V isits Requested Authorized [id number] 11/26/2015 11/24/2016 6 6 Encounter Details Date Type Department Care Team Description 03/17/2016 Office Visit Dermatology at [facility] Alfonso Lacey MD Dermatographism [address] [place] [address] [place] [address] [place] [address] [phone] (Wo rk) Social History Tobacco Use Types Packs/Day Years Used Date Smoking Tobacco: Never Sex Assigned at Date Recorded Not on file documented as of this encounter Progress Notes Alfonso Laecy MD - 03/17/2016 2:45 PM EDT PROBLEM: 1. Pruritic dermatitis. 2. History of granuloma annulare. Ling follows up and she no longer has issues with GA, but now for about 6 months, since early spring, has had an itchy rash that comes and goes on her arms and legs. She says she gets little red bumps, that she itches and scratches them and they go away. Physical examination reveals a pleasant 61-year-old woman who today has some slight post inflammatory hyperpigmentation at sites of recently excoriated papules on the backs of her ankles and a few sites on her arms. Fortunately, careful examination of the face, the scalp, the neck, the chest, the back, the abdomen, forearms, thighs, the calves, and the feet is otherwise unremarkable. She has no evidence of GA/granuloma annulare. She does have, with light stroking of her back, erythematous wheals raised, consistent with dermatographism. ASSESSMENT/PLAN: Dermatographism. A. Trigger for this in her case unclear. B. No new medications, no changes. C. Recommend using fragrance-free soaps and beginning symptomatic therapy with desloratadine 5 mg 1 p.o. q.a.m., dispensed #90, with 1 refill. Alternatively, she could obtain bisz-srp-aperikt Claritin 10 mg 1 p.o. daily. She will let me know if this is not helpful. I have suggested that she have her PCP check her thyroid level. Potentially hydrochlorothiazide can be a trigger for this, although it is not new, could be a late onset problem. cc: Marybeth Torres MD documented in this encounter Plan of Treatment Upcoming Encounters Date Type Specialty Care Team Description 03/19/2023 Office Visit Dermatology Alfonso Lacey MD [address] [facility] DERMATOLOGY [place], [place] [address] (Wo rk) documented as of this encounter Visit Diagnoses Diagnosis Dermatographism Dermatographic urticaria documented in this encounter Care Teams Loan Service Officer Relationship Specialty Start Date End Date Marybeth Torres MD PCP - General 06/21/10 11/20/[address] [place] [address] documented as of this encounter
--- OUTSIDE RECORDS SUMMARY | 2022-06-16 00:26 | XMS_ITS | Encounter Summary ---
:1955 Author Organization [facility] Address [address] [place] [address] Care Team Providers Name Role Phone Unavailable Primary Care Provider Unavailable Encounter Details Date Type Department Care Team Description 05/01/2006 Results Only [facility] - Aundrea Aaron od, Samia Johnson, MEDICAL RECEPTIONIST BILLER conversion [address] [place] [phone] (Wo rk) Social History Tobacco Use Types Packs/Day Years Used Date Smoking Tobacco: Never Assessed Sex Assigned at Date Recorded Not on file documented as of this encounter Plan of Treatment Not on filedocumented as of this encounter Procedures Procedure Name Priority Date/Time Associated Diagnosis Comme nts CYTOPATHOLOGY Routine 05/01/2006 0:00 EDT Results for this procedure are i n the results section . documented in this encounter Results CYTOPATHOLOGY (05/01/2006 0:00 EDT) Component Value Ref Test Analysis Performed At [facility] Range Method Time Signature Pathology CYTOPATHOLOGY REPORT [facility] Report: [facility] Reports generated via electronic interface contain original data; however they are lacking the format of the original report. Caution should be taken when reading/interpreting unformatte d reports. Name: ? NAOMI BYRD ? Accession #: ? [id number] : ? 1955 (Age: 51) ??F ?Collect Date: ? 05/01/2006 Location: ? [facility] ? Receive Date: ? 05/02/2006 Provider: ?SAMIA JAY MEDICAL RECEPTIONIST BILLER Copy to: ? Specimen/Source: ? ThinPrep Pap Test, Cervix/Endocervix, processed on [employer] ThinPrep Imaging System, with manual evaluation Last Menstrual Period: ? 2003 Other: ? HPVA - HPV testing requested if ASC-US on the current ThinPr ep Pap test. ? SPECIMEN ADEQUACY ? Satisfactory for Evaluation - transformation zone component present GENERAL CATEGORIZATION ? Negative for Intraepithelial Lesion or Malignancy ? Document reviewed and electronically signed by: ? Mraybeth Chester, [facility](ASCP) ? Report Date: ??05/07/2006 12:15 End of Report Specimen (Source) Anatomical Location Collection Method / Collectio n Time Received Time / Laterality Volume 05/01/2006 05/02/2006 Samia Jay MEDICAL RECEPTIONIST BILLER PATHOLOGY ORDERABLES Performing Organization Address City/State/ZIP Code Phon e Number [facility] [address] [place] [address] SERVICES [facility] [address] [place] [address] documented in this encounter Visit Diagnoses Not on filedocumented in this encounter
--- OUTSIDE RECORDS SUMMARY | 2022-06-16 00:26 | XMS_ITS | Encounter Summary ---
:1955 Author Organization [facility] [place] [address] Care Team Providers Name Role Phone Marybeth Torres MD Primary Care Provider Reason for Visit Reason Comments Skin Check Encounter Details Date Type Department Care Team Description 11/29/2010 Office Visit Dermatology Alfonso Lacey GA (granuloma [address] MD matos) (Primary [address]) [place], [place] DERMATOLOGY [address] [place] [address] [phone] (Wo rk) Social History Tobacco Use Types Packs/Day Years Used Date Smoking Tobacco: Never Assessed Sex Assigned at Date Recorded Not on file documented as of this encounter Progress Notes Alfonso Lacey MD - 11/29/2010 10:34 AM EDT Problem: Followup granuloma annulare. Ling follows up after last being seen in February of 2010. She is starting to get some involvement again on her left wrist and because it shows she would like to have it injected with Kenalog. It has worked well previously. Clobetasol Cream did not help for the other areas on her ankles, legs and on the extensor elbows. Physical examination reveals papular GA present widely on the dorsum of the feet and on the extensor elbows and some mild patchy involvement in localized areas on her left wrist. Assessment & Plan: Granuloma annulare, papular. a. Today at patient request Kenalog injection 5 mg/cc was utilized to inject 1 cc into the affected areas. b. Recommended that she judiciously get a little bit of a shetty get some color in the sun. She is brown eyed and tans well. c. As patient is asymptomatic otherwise will not pursue SSKI or other more aggressive therapies. d. RTC at the point of diminishing returns. Discussed the fact that this should in time run its course and resolve. This has been going on however since at least 2000. documented in this encounter Plan of Treatment Upcoming Encounters Date Type Specialty Care Team Description 03/19/2023 Office Visit Dermatology Alfonso Lacey MD [address] [facility] DERMATOLOGY [place], [place] [address] (Wo rk) documented as of this encounter Visit Diagnoses Diagnosis GA (granuloma annulare) - Primary Other specified erythematous condition documented in this encounter Care Teams Material Handling Crew Supervisor Relationship Specialty Start Date End Date Marybeth Torres MD PCP - General 06/21/10 11/20/18 [address] [place] [address] documented as of this encounter
--- OUTSIDE RECORDS SUMMARY | 2022-06-16 00:26 | XMS_ITS | Encounter Summary ---
:1955 Author Organization [facility] Address [address] [place] [address] Care Team Providers Name Role Phone Unavailable Primary Care Provider Unavailable Encounter Details Date Type Department Care Team Description 04/20/2003 Results Only [facility] - Meenu Johnson NP conversion [address] [place] [address] Social History Tobacco Use Types Packs/Day Years Used Date Smoking Tobacco: Never Assessed Sex Assigned at Date Recorded Not on file documented as of this encounter Plan of Treatment Not on filedocumented as of this encounter Procedures Procedure Name Priority Date/Time Associated Diagnosis Comme nts CYTOPATHOLOGY Routine 04/20/2003 0:00 EDT Results for this procedure are i n the results section . documented in this encounter Results CYTOPATHOLOGY (04/20/2003 0:00 EDT) Component Value Ref Test Analysis Performed At [facility] Method Time Signature Pathology CYTOPATHOLOGY REPORT [facility] Report: [facility] Reports generated via electronic interface contain original data; however they are lacking the format of the original report. Caution should be taken when reading/interpreting unformatte d reports. Name: ? NAOMI BYRD ? Accession #: ? [id number] : ? 1955 (Age: 48) ??F ?Collect Date: ? 04/20/2003 Location: ? [facility] ? Receive Date: ? 04/22/2003 Provider: ?MEENU MADISON NP Copy to: ? Specimen/Source: ?ThinPrep Pap Test, Cervix/Endoce rvix Last Menstrual Period: ? 04/15/03 ? SPECIMEN ADEQUACY ? Satisfactory for Evaluation - transformation zone component present GENERAL CATEGORIZATION ? Other, see interpretation INTERPRETATION ? Endometrial cells present in a woman equal to o r greater than age 40. Negative for Intraepithelial Lesion or Malignancy. ? COMMENT ? Benign appearing endometrial cells on Pap tests are usually a normal finding in women with regular menstrual cycles, especially i f the Pap was collected during the first h chantel of the menstrual cycle. ??There is data showing that endometrial cells on Pap tests may be associated with endometrial/uterine abnormalities in post menopausal women o r in premenopausal women with abnormal bleeding. ??There is limited data on the significance of benign endometrial cells in post menopausal women on HRT. ??Clinical correlation is r ecommended. Note: ?? The Pap test is not an accurate test for the screening of endometrial lesions and should not be used as a follow up in patients wi th clinical suspicion of endometrial pathology. ? Document reviewed and electronically signed by: ? YOLETTE Norris(ASCP) ? Report Date: ??04/27/2003 09:32 End of Report Specimen (Source) Anatomical Location Collection Method / Collectio n Time Received Time / Laterality Volume 04/20/2003 04/22/2003 Meenu Madison NP PATHOLOGY ORDERABLES Performing Organization Address City/State/ZIP Code Phon e Number [facility] [address] [place] [address] SERVICES [facility] [address] [place] [address] documented in this encounter Visit Diagnoses Not on filedocumented in this encounter
--- NOTE | 2022-06-16 07:15 | DI.MAMMO_ITS ---
Exam(s) MAMMO SCREENING EXAM: MAMMO SCREENING CLINICAL HISTORY: screening,Z12.39. TECHNIQUE: Bilateral full field digital CC and MLO mammographic images were obtained with 3D tomosyn thesis and utilizing computer aided detection (CAD). COMPARISON: Prior mammograms were reviewed. FINDINGS: There are no new spiculated masses nor malignant appearing microcalcification groups. There is no significant architectural distortion nor skin thickening-retraction. IMPRESSION: No radiographic evidence of malignancy. BI-RADS Category 1 - Negative Breast Density - Category A - Almost entirely fatty Breast density Category C or D implies that the patient has dense breast tissue. Dense breast tissue can make it harder to find cancer on a mammogram. Dense breast tissue is also associated with an incr eased risk of breast cancer. This information about the result of the mammogram report was provided to the patient to raise their awareness. Use this report when you speak with the patient about their risks for breast cancer, which includes their family history. At that time, you may recommend additional screening tests (Ultrasoun d or MRI) as these tests may add significant information. A negative radiographic report should not delay biopsy if a dominant or clinically suspicious mass is present. Up to ten percent of cancers are not identified on mammography. A negative report may reinforce clinical impression. Adenosis and dense breasts may obscure an underlying neoplasm. False positive reports average 6 to 10%. Patient will receive a letter notifying them of these results.
== END ==
PROVIDERS: PCP Family Medicine; Visit Provider Obstetrics & Gynecology
DX: Z12.31 Encounter for screening mammogram for malignant neoplasm of breast (principal)
CPT/HCPCS: 77063; 77067

== ENCOUNTER 2022-07-20 09:47 | Outpatient (CLI) | payer MEDICARE, SELFPAY ==
[2022-07-20 08:32] LABS: BUN 12 mg/dL (7-18); CREATININE 0.8 mg/dL (0.55-1.02); Calcium 9.8 mg/dL (8.5-10.1); Calculated LDL 85 mg/dL (<100); Chloride 100 mmol/L (98-107); Cholesterol 147 mg/dL (<200); Estimated GFR 80.21 (mL/min/1.73m2); Glucose 102 mg/dL (74-106); HDL Cholesterol 44 mg/dL (40-60); Potassium 4.6 mmol/L (3.5-5.1); Sodium 137 mmol/L (136-145); TSH (W/Ref FT4) 0.17 uIU/mL (0.36-3.74); Triglyceride 94 mg/dL (<150)
== END 2022-07-20 09:48 | disposition home or self-care (01) ==
LOC: LBO 09:48
PROVIDERS: PCP Family Medicine; Visit Provider Family Medicine
DX: E78.5 Hyperlipidemia, unspecified (principal); E87.1 Hypo-osmolality and hyponatremia; E03.9 Hypothyroidism, unspecified
CPT/HCPCS: 36415; 80048; 80061; 84439; 84443

== ENCOUNTER 2022-09-12 14:03 | Outpatient (CLI) | payer MEDICARE, SELFPAY ==
[2022-09-12 14:37] LABS: TSH (W/Ref FT4) 15.62 uIU/mL (0.36-3.74)
[2022-09-12 14:58] LABS: FREE T4 0.83 ng/dL (0.76-1.46)
== END 2022-09-12 14:04 | disposition home or self-care (01) ==
PROVIDERS: PCP Family Medicine; Visit Provider Family Medicine
DX: E03.9 Hypothyroidism, unspecified (principal)
CPT/HCPCS: 36415; 84439; 84443

== ENCOUNTER 2022-10-23 10:33 | Outpatient (CLI) | payer MEDICARE, SELFPAY ==
[2022-10-23 10:28] LABS: TSH (W/Ref FT4) 1.53 uIU/mL (0.36-3.74)
== END 2022-10-23 10:34 | disposition home or self-care (01) ==
LOC: LBO 10:35
PROVIDERS: PCP Family Medicine; Visit Provider Family Medicine
DX: E03.9 Hypothyroidism, unspecified (principal)
CPT/HCPCS: 36415; 84443

== ENCOUNTER 2023-02-01 12:45 | Outpatient (REF) | payer MEDICARE, SELFPAY | END 2023-02-01 12:46 | disposition home or self-care (01) | LOC: LBN 12:45 | PROVIDERS: PCP Family Medicine; Visit Provider Nurse Practitioner Family | DX: R30.0 Dysuria (principal) | CPT/HCPCS: 87077; 87086; 87186 ==

== ENCOUNTER 2023-04-07 05:03 | Emergency (ER) | payer MEDICARE, SELFPAY ==
[2023-04-07 05:06] VITALS: BP 173/97; PULSE 102; RESP 16; TEMP 36.7; O2SAT 97
[2023-04-07 05:24] LABS: Bilirubin Negative (Negative); Blood Moderate (Negative); Clarity Cloudy (Clear); Glucose Negative (Negative); Ketones Negative (Negative); Leukocyte Esterase Large (Negative); Nitrite Positive (Negative); Urobilinogen 0.2 mg/dL (Up to 0.2); pH 6.5 (5-8)
[2023-04-07 05:32] LABS: C & S Indicated? Yes; WBC >50 HPF (0-5)
--- NOTE | 2023-04-07 05:32 | W.ED.GENAD ---
Discharge Plan Disposition Patient Disposition: Home Discharge Details Clinical Impression: Urinary tract infection, Urticaria Primary Care Provider: Elian Gamboa ED Provider: Rachel Rodríguez Home Meds and New Rx's Prescriptions: New ciprofloxacin HCl [Cipro] 500 mg tablet 500 mg PO BID Qty: 14 0RF Rx Instructions: May stop after 3 days if you have no symptoms. If you have any symptoms after 3 days continue for 7 days. Avoid sports that involve quick movements such as tennis or basketball because there is a slight increase of tendon rupture while on ciprofloxacin. diphenhydramine HCl 25 mg capsule 25 mg PO Q6H PRN (Reason: allergic reaction) Qty: 30 0RF prednisone 20 mg tablet 40 mg PO DAILY 4 Days Qty: 8 0RF epinephrine [EpiPen] 0.3 mg/0.3 mL auto-injector 0.3 mg IM ONCE Qty: 1 0RF Rx Instructions: as a single dose; may repeat once famotidine [Pepcid AC] 20 mg tablet 20 mg PO DAILY Qty: 5 0RF No Action atorvastatin 10 mg tablet 10 mg PO DAILY Qty: 90 3RF nitrofurantoin monohyd/m-cryst [Macrobid] 100 mg capsule 100 mg PO BID Qty: 10 1RF Rx Instructions: must administer with a meal/food omega-3 fatty acids [Fish Oil] PO hydrochlorothiazide 25 mg tablet 25 mg PO QAM Qty: 90 4RF lisinopril 10 mg tablet 10 mg PO DAILY Qty: 135 3RF Multi-Day Plus Minerals 1 EACH tablet 1 ea PO DAILY levothyroxine [Synthroid] 112 mcg tablet 112 mcg PO .M-Sat, / tab Sun Qty: 90 4RF Rx Instructions: 112 mcg Sunday-Sunday 56 mcg on Sundays gabapentin 300 mg capsule 300 mg PO QHS Qty: 90 1RF trazodone 50 mg tablet 50 mg PO hs prn Qty: 90 3RF Rx Instructions: for insomnia Discharge Instructions Instructions: Urinary Tract Infection in Women (ED), Urticaria (ED) Additional Instructions: 1. Stop nitrofurantoin and start ciprofloxacin 500 mg every 12 hours. If you have no symptoms after 3 days you may discontinue the antibiotics. If you continue to have symptoms after 3 days take the full 7-day course. We recommend that you take a probiotic while on antibiotics. 2. A culture was done and will be resulted in 48 hours. You may access the results through the patient portal or by following up with your primary care provider. 3. Start prednisone 40 mg once a day for the next 4 days. Take this in the morning. 4. Take diphenhydramine 25 to 50 mg every 6 hours as needed for allergic reaction. This can cause drowsiness. 5. Take Pepcid 20 mg once a day for the next 5 days. This also helps with allergic reactions. 6. Fill the prescription for the EpiPen. This should be used only for severe allergic reactions that involve swelling of the lips throat or tongue or shortness of breath or wheezing.. 7. Call your primary care provider for the first available follow-up appointment and recheck and return here for any new or worrisome symptoms such as swelling of the lips throat or tongue, change in voice, shortness of breath. Discharge Data Discharge Physician: Rachel Rodríguez [facility] General Date/Time Provider Initiated Documentation: 04/07/23 05:31. Limitations to Documentation: no limitations. Information obtained by: patient. History of Present Illness described as mild, Patient did receive the following treatments prior to arrival, none HPI Narrative: Time seen was 5:32 AM in bed 4. The patient is a 68-year-old female with history of frequent UTIs who has a prescription for nitrofurantoin which she is taken for 5 times in the past for urinary tract infections. She states that she began having burning and urgency yesterday associated with some mild itching but no vaginal discharge. The symptoms are similar to her prior UTI symptoms. At 1 AM she took nitrofurantoin and 1 hour ago developed urticaria with swelling and itching of her hands and feet as well as her back. She does have a history of urticaria in the past but no etiology was ever found. She denies any new foods, lotions, soaps or detergents. The last thing she ate was fettuccine Lazaro which she has had in the past. She denies any wheezing or change of her voice. She denies any swelling of the lips throat or tongue. She denies any dizziness fever or back pain. She denies any other aggravating or alleviating factors. Most of her urgency and dysuria with urination. She denies any nausea or vomiting. She was requesting a shot. She used to be employed here in [employer]. Related Data Home Medications Medication Instructions Recorded Confirmed multivit with minerals-iron 18 1 ea PO DAILY 01/11/18 03/08/23 mg-folic ac 400 mcg-vit K 25 mcg tablet (Multi-Day Plus Minerals) hydrochlorothiazide 25 mg tablet 25 mg PO QAM #90 tabs 07/18/22 03/08/23 levothyroxine 112 mcg tablet 112 mcg PO .M-Sat, 07/31 tab Sun #90 09/13/22 03/08/23 (Synthroid) tabs atorvastatin 10 mg tablet 10 mg PO DAILY #90 tabs 10/24/22 03/08/23 lisinopril 10 mg tablet 10 mg PO DAILY #135 tab-caps 12/14/22 03/08/23 nitrofurantoin 100 mg PO BID #10 caps 02/01/23 02/01/23 monohydrate/macrocrystals 100 mg capsule (Macrobid) gabapentin 300 mg capsule 300 mg PO QHS #90 caps 02/06/23 03/08/23 trazodone 50 mg tablet 50 mg PO hs prn #90 tab-caps 02/06/23 03/08/23 omega-3 fatty acids [Fish Oil] PO 03/08/23 03/08/23 ciprofloxacin HCl 500 mg tablet 500 mg PO BID #14 tabs 04/07/23 (Cipro) diphenhydramine HCl 25 mg capsule 25 mg PO Q6H PRN allergic reaction 04/07/23 #30 caps epinephrine 0.3 mg/0.3 mL 0.3 mg (0.3 mL) IM ONCE Only for 04/07/23 injection, auto-injector (EpiPen) severe allergic reactions #1 ea famotidine 20 mg tablet (Pepcid AC) 20 mg PO DAILY #5 tabs 04/07/23 prednisone 20 mg tablet 40 mg PO DAILY Allergic reaction 4 04/07/23 days #8 tabs Previous Rx's Medication Instructions Recorded hydrochlorothiazide 25 mg tablet 25 mg PO QAM #90 tabs 07/18/22 levothyroxine 112 mcg tablet 112 mcg PO .M-Sat, 1/2 tab Sun #90 09/13/22 (Synthroid) tabs atorvastatin 10 mg tablet 10 mg PO DAILY #90 tabs 10/24/22 lisinopril 10 mg tablet 10 mg PO DAILY #135 tab-caps 12/14/22 nitrofurantoin 100 mg PO BID #10 caps 02/01/23 monohydrate/macrocrystals 100 mg capsule (Macrobid) gabapentin 300 mg capsule 300 mg PO QHS #90 caps 02/06/23 trazodone 50 mg tablet 50 mg PO hs prn #90 tab-caps 02/06/23 ciprofloxacin HCl 500 mg tablet 500 mg PO BID #14 tabs 04/07/23 (Cipro) diphenhydramine HCl 25 mg capsule 25 mg PO Q6H PRN allergic reaction 04/07/23 #30 caps epinephrine 0.3 mg/0.3 mL 0.3 mg (0.3 mL) IM ONCE Only for 04/07/23 injection, auto-injector (EpiPen) severe allergic reactions #1 ea famotidine 20 mg tablet (Pepcid AC) 20 mg PO DAILY #5 tabs 04/07/23 prednisone 20 mg tablet 40 mg PO DAILY Allergic reaction 4 04/07/23 days #8 tabs Allergies Allergy/AdvReac Type Severity Reaction Status Date / Time Sulfa (Sulfonamide Allergy Severe Rash Verified 03/08/23 09:24 Antibiotics) General Stated Complaint: Urinary FABIOLA: 4 Review of Systems Constitutional Constitutional: Denies headache(s) Eyes Eyes: Denies itchy eyes and Denies loss of vision ENT Ears, Nose, Mouth, and Throat: Denies headache(s), Denies lip swelling, Denies throat swelling and Denies tongue swelling Respiratory Respiratory: Denies wheezing Neurologic Neurologic: Denies headache(s), Denies localized weakness and Denies loss of vision Allergic/Immunologic Allergic/Immunologic: Denies GI upset with certain foods, Reports urticaria, Denies itchy eyes, Denies lip swelling, Denies throat swelling, Denies tongue swelling and Denies wheezing PFSH All Active Problems Urinary tract infection (Acute) Urticaria (Acute) Impacted cerumen, left ear (Acute) Chronic insomnia (Acute) Lipoma (Acute) Impaired fasting glucose (Acute 11/17/14) Hypothyroidism (Acute) Hyperlipidemia (Acute) 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) Essential hypertension (Acute 11/07/13) Medical History Anemia (06/03/12) Depressive disorder Disorder of vitamin B12 (11/07/13) Foot pain (11/13/12) Impacted cerumen of both ears Macular hole, left eye Right-sided low back pain with right-sided sciatica Sensorineural hearing loss (SNHL) of both ears Strain of right gastrocnemius muscle (12/17/17) Tendonitis of left rotator cuff Injected: 05/23/2019 Surgical History Cholecystectomy History of bilateral oophorectomy Ligation of fallopian tube Status post cholecystectomy Family History Mother Diabetes Essential hypertension Heart disease Hyperlipidemia Stroke Father Alcohol abuse Sister No problems noted. Brother No problems noted. Brother No problems noted. Grandfather No problems noted. Grandfather No problems noted. Grandmother Diabetes Grandmother No problems noted. Son No problems noted. Son Diabetes Social History Smoking/Tobacco Use Status: Never Smoking risk assessment performed?: Yes Drug use: Never Substance use type: does not use Do you feel safe at home: Yes Do you feel safe in your relationship?: Yes Female Reproductive History Menstrual Menopause type: natural History History 2 Para 2 Hx # Term Pregnancies Multiple births Hx # Pregnancies Ectopic pregnancies AB induced Hx Number of Living Children AB spontaneous Exam Const General: cooperative, healthy appearing, comfortable, no acute distress, well developed, well groomed and well hydrated Nutritional Appearance: average body habitus and well nourished Orientation: alert, awake and oriented x3 HENMT Head: normal to inspection, normocephalic and atraumatic Ears: hearing grossly normal bilaterally and external ears normal General nose exam: external nose normal, nares normal and no nasal discharge Face and sinus: normal facial exam, sinuses nontender and face symmetric Mouth: oral mucosae normal, lip normal, tongue normal, oropharynx normal, moist mucous membranes and other (Normal phonation. The patient is handling secretions.) Throat: posterior oropharynx normal and uvula midline Eyes General: appearance normal, both eyes and all related structures Eyelids: eyelids normal Conjunctivae: conjunctivae normal Sclera: sclerae normal Cornea: corneas normal Pupils: PERRL EOM: EOM intact bilaterally and No nystagmus Neck Neck: normal visual inspection, full ROM, no lymphadenopathy, no meningeal signs, trachea midline and supple Lymphatic: no lymphadenopathy noted Chest Chest: normal inspection of the chest Resp Effort & Inspection: normal respiratory effort, able to speak in complete sentences, no audible wheezes, no nasal flaring, no respiratory distress, no retractions, no stridor, not tachypneic, no tracheal deviation, no use of accessory muscles, No prolonged expiratory phase and other (Normal inspiratory to expiratory ratio.) Auscultation: clear to auscultation bilaterally, no rales, no rhonchi, no wheezes and no rubs Tactile Fremitus: tactile fremitus absent Cardio Jugular venous pressure: no JVD Palpation: normal PMI Rate: regular rate Rhythm: regular rhythm Heart Sounds: S1 normal, S2 normal, no gallops, no murmurs and no rubs GI Inspection: normal to inspection and non-distended Palpation: soft, no hepatosplenomegaly, no guarding and nontender Percussion: normal to percussion Auscultation: normal bowel sounds General: No CVA tenderness Back/Spine/Pelvis Back: no CVA tenderness and No back tenderness Cervical Spine: normal cervical lordosis, cervical ROM normal, No cervical muscular tenderness, No pain with cervical ROM, No cervical spinal tenderness and No step off deformity Thoracic/Lumbar Spine: thoracic and lumbar spine normal to inspection, No thoracic spinal tenderness and No lumbar spinal tenderness Pelvis: no pain with anterior-posterior compression and no pain with lateral compression Skin General skin exam: turgor normal, no petechiae, no purpura and other (Skin is normal for ethnicity.) Trauma: no lacerations or abrasions Neuro General: patient alert, patient awake, patient oriented x3, moves all extremities, no meningeal signs, no focal motor deficits and CN's II-XI intact bilaterally Cranial Nerves: CN's II-XI intact bilaterally, PERRL, accommodation normal, EOM intact bilaterally, no nystagmus, facial strength normal, tongue midline, hearing normal and no nystagmus Cognition: normal cognition Speech: speech normal Gait: normal gait Motor: muscle tone normal throughout and strength 5/5 throughout Sensory Exam: no sensory deficits noted Extrem General: normal to inspection, full ROM, capillary refill normal, no clubbing, cyanosis or edema and no calf tenderness Psych Appearance: grossly normal Affect: normal affect Attitude: cooperative Thought Process: normal Thought Content: normal Insight: insight good Judgment: judgment good Other: The patient appears to have capacity make medical decisions. Course Vital Signs Vital signs: Vital Signs Temperature 36.7 C 04/07/23 05:06 Pulse 102 H 04/07/23 05:06 Respiratory Rate 16 04/07/23 05:06 Blood Pressure 173/97 H 04/07/23 05:06 Pulse Oximetry 97 04/07/23 05:06 Temperature 36.7 C 04/07/23 05:06 Temperature Source Oral 04/07/23 05:06 Pulse 102 H 04/07/23 05:06 Respiratory Rate 16 04/07/23 05:06 Respiratory Effort Normal 04/07/23 05:11 Blood Pressure 173/97 H 04/07/23 05:06 Blood Pressure Position Sitting 04/07/23 05:06 Pulse Oximetry 97 04/07/23 05:06 Oxygen Delivery Method Room Air 04/07/23 05:06 Oxygen Flow Rate 0 04/07/23 05:06 Lab/Test Results Lab/Test Results: Laboratory Tests Range/Units 04/07/23 05:17 Urine Color (Yellow) Yellow Urine Clarity (Clear) Cloudy Urine pH (5-8) 6.5 Ur Specific [place] (1.005-1.025) 1.020 Urine Protein (Negative) mg/dL 30 H Urine Ketones (Negative) mg/dL Negative Urine Blood (Negative) Moderate H Urine Nitrite (Negative) Positive H Urine Bilirubin (Negative) Negative Urine Urobilinogen (Up to 0.2) mg/dL 0.2 Ur Leukocyte Esterase (Negative) Large H Urine Glucose (Negative) mg/dL Negative
[2023-04-07] MEDS: Ciprofloxacin 500 MG TAB PO (06:02)
[2023-04-07] MEDS: EPINEPHrine 1 MG/10 ML SYR (06:02)
[2023-04-07] MEDS: diphenhydrAMINE 25 MG CAP 50 MG PO (06:02)
[2023-04-07] MEDS: predniSONE 20 MG TAB 40 MG PO (06:04)
[2023-04-07 06:18] VITALS: PULSE 69; O2SAT 96
== END 2023-04-07 06:37 | disposition home or self-care (01) ==
PROVIDERS: Emergency Provider Emergency Medicine Emergency Medical Services; PCP Family Medicine
DX: L50.9 Urticaria, unspecified (principal); T37.8X5A Adverse effect of other specified systemic anti-infectives and antiparasitics, initial encounter; N39.0 Urinary tract infection, site not specified; I10 Essential (primary) hypertension; Z79.899 Other long term (current) drug therapy
CPT/HCPCS: 87077; 96372; 99283; 81003; 81015; 87086; 87186; J7512

== ENCOUNTER 2023-07-04 13:34 | Outpatient (CLI) | payer MEDICARE, SELFPAY ==
--- NOTE | 2023-07-04 13:15 | DI.RAD_ITS ---
Exam(s) XR SHOULDER LT COMPLETE 2+V EXAM: XR SHOULDER LT COMPLETE 2+V CLINICAL HISTORY: BILATERAL SHOULDER PAIN. TECHNIQUE: 2D digital imaging was performed. Three views. COMPARISON: CR XR SHOULDER RT COMPLETE 2+V from 07/04/2023 FINDINGS: BONES: No acute fracture is present. No bony destructive lesion is seen. Degenerative cysts in humer al head. JOINTS: No dislocation present. Spurring at AC joint. Glenohumeral joint space is maintained. Spur ring noted at the glenoid. Minimal spurring at the humeral head. SOFT TISSUE: Normal. IMPRESSION: Kdhq-cp-eamhohbc degenerative changes. DATA REPOSITORY: RADIATION DOSE DELIVERED:
--- NOTE | 2023-07-04 13:15 | DI.RAD_ITS ---
Exam(s) XR SHOULDER RT COMPLETE 2+V EXAM: XR SHOULDER RT COMPLETE 2+V CLINICAL HISTORY: BILATERAL SHOULDER PAIN. TECHNIQUE: 2D digital imaging was performed. Two views. COMPARISON: CR XR SHOULDER LT COMPLETE 2+V from 05/01/2019 FINDINGS: BONES: No acute fracture is present. No bony destructive lesion is seen. Small degenerative subchond ral cysts in the humeral head. JOINTS: No dislocation present. Spurring at the AC joint. Mild spurring at the glenohumeral joint. Glenohumeral joint space is maintained. SOFT TISSUE: Normal. IMPRESSION: Mild degenerative changes. DATA REPOSITORY: RADIATION DOSE DELIVERED:
== END 2023-07-04 13:35 | disposition home or self-care (01) ==
LOC: DIORS 13:34
PROVIDERS: PCP Family Medicine; Referring Provider Family Medicine; Visit Provider Student in an Organized Health Care Education/Training Program
DX: M25.511 Pain in right shoulder (principal); M25.512 Pain in left shoulder; M75.81 Other shoulder lesions, right shoulder; M75.82 Other shoulder lesions, left shoulder; D17.21 Benign lipomatous neoplasm of skin and subcutaneous tissue of right arm
CPT/HCPCS: 20610; 99213; 73030; J1030

== ENCOUNTER → 2023-07-18 10:45 | Outpatient (BNVA) | payer MEDICARE, SELFPAY | PROVIDERS: PCP Family Medicine; Referring Provider Family Medicine; Visit Provider Surgery | DX: D17.21 Benign lipomatous neoplasm of skin and subcutaneous tissue of right arm (principal) | CPT/HCPCS: 99213 ==

== ENCOUNTER 2023-08-10 06:49 | Day surgery (SDC) | payer MEDICARE, SELFPAY ==
--- NOTE | 2023-08-09 16:48 | W.PM.DSUDISC ---
Date of service: 08/10/23 Time of Service: 08:55 Discharge Plan Disposition Patient Disposition: Home Condition: Good Discharge Details Reason For Visit: Excision and primary closure of right shoulder mas Attending Provider: Ron Girard Primary Care Provider: Elian Gamboa Home Meds and New Rx's Prescriptions: New tramadol 50 mg tablet 50 mg PO Q8H PRNQty: 12 0RF Rx Instructions: Take 1 tablet by mouth up to every 8 hours if needed for severe pain. Continued hydrochlorothiazide 25 mg tablet 25 mg PO QAM Qty: 90 4RF atorvastatin 10 mg tablet 10 mg PO DAILY Qty: 90 3RF gabapentin 300 mg capsule 300 mg PO QHS Qty: 90 1RF omega-3 fatty acids [Fish Oil] 1 cap PO DAILY lisinopril 10 mg tablet 10 mg PO DAILY Qty: 135 3RF naproxen sodium [Aleve] 220 mg capsule 220 mg PO BID PRN Multi-Day Plus Minerals 1 EACH tablet 1 ea PO DAILY trazodone 50 mg tablet 50 mg PO hs prn Qty: 90 3RF Rx Instructions: for insomnia levothyroxine [Synthroid] 112 mcg tablet 112 mcg PO .M-Sat, / tab Sun Qty: 90 4RF Rx Instructions: 112 mcg Sunday-Sunday 56 mcg on Sundays epinephrine [EpiPen] 0.3 mg/0.3 mL auto-injector 0.3 mg IM ONCE Qty: 1 0RF Rx Instructions: as a single dose; may repeat once Discharge Instructions Instructions: Lipoma Removal (DC) Additional Instructions: Ling, we were able to remove the lipoma from your right shoulder today without any difficulty. By all measures, it looks like a simple lipoma. However, to be safe, I will send it off for a pathology report. Expect to have some soreness, and some bruising over your shoulder in the next few days. Please take some time each day to gently move around your arm to help promote mobility around the shoulder. Refrain from using the arm for really heavy lifting, however. You are welcome to use a heating pad, or ice packs around the incision to help with discomfort. I have also provided a prescription for a medication called tramadol if it is the case that Tylenol and ibuprofen are not enough to keep you comfortable. We have made a follow-up appointment in our office on the , and I look forward to seeing you there. If you need anything in the meantime, please do not hesitate to call at any point. 1. Resume all of your medications. 2. Heating pads and ice packs can be used over the incision site to help with pain. 3. Okay to use tylenol and ibuprofen over the counter as needed. Use tramadol as needed for more severe pain 4. Leave bandage in place for 24 hours, then remove. 5. Shower with warm soapy water. Pat dry. Use a bandaid if needed to protect your clothing. 6. No soaking or tub baths until I see you in the office. 7. No heavy lifting until I see you in the office. 8. Call the office (or go directly to the emergency room after hours) if you notice any of the following: Develop chills (warm to touch), or if you have a thermometer and your temperature is above 101 Difficulty breathing or difficultly swallowing Persistent vomiting Any bleeding ? exceeding one tablespoon 9. Call your physician if the site where your intravenous was started becomes red, swollen, painful, and warm to touch. Referrals: Ron Girard MD [ [facility] STAFF PHYSICIAN] - (August 21 at 130) Activity:: Activity as Tolerated Remove Dressings/Wound Care:: 24 hours Shower/Bathe:: 24 hours Diet:: As Tolerated Discharge Orders Discharge Orders: Discharge Order (Routine); Ordered 08/09/23 Ordered By: Ron Girard DS: Diagnosis Discharge Diagnosis (1) Lipoma of right shoulder: Status: Acute Asessment and Plan: Routine excision and primary closure
--- NOTE | 2023-08-09 16:49 | W.PM.OP ---
Date of service: 08/10/23 Time of Service: 09:03 Operative Note Operative Note DATE OF PROCEDURE: 08/10/23 PRE-OP DIAGNOSIS: Right shoulder lipoma POST-OP DIAGNOSIS: same PROCEDURE: Excision and primary closure of right shoulder mass SURGEON: Ron Girard SUPERVISOR FILTER ASSEMBLY: Nuvia Childs ANESTHESIA TYPE: Local By Surgeon and General:No Airway Refer to Anesthesia Record ESTIMATED BLOOD LOSS: 15 PATHOLOGY: other (Right shoulder mass) COMPLICATIONS: None Patient was transported to: same day Patient's condition: stable Indications: Ling is a 68-year-old woman with a lump on the posterior lateral aspect of her right shoulder. Clinical features seem consistent with a lipoma. It has grown in size a little bit, and does cause her some occasional discomfort with shoulder movement, and laying on it. Findings: Fatty mass consistent with lipoma Procedure Description: After the induction of general endotracheal anesthesia, we rolled Ling into the left lateral decubitus position. She was supported with a beanbag. An axillary roll was placed to help reduce pressure. All other points of contact were gently padded. Next, I prepped and draped the right shoulder. I established a generous field block using local anesthetic. I then made a skin incision over the long axis of the mass and dissected down through the subcutaneous tissue. Here, we encountered a well encapsulated mass that appeared consistent with a lipoma. We dissected underneath the skin around the edges of the mass trying to get along its underside. It was a bit serpiginous along the anterior lateral aspect, and careful dissection was used to separate it from the surrounding fat soft tissue. There was some disruption of the mass along this portion, but I do believe that we were able to excise all of it. He will be sent for pathology. The surgical site was examined. There was minimal amount of bleeding that was easily controlled with electrocautery. The incision itself was 4 cm long, and approximately 3 cm deep. The wound was irrigated. Next, it was closed in layers trying to obliterate the space left behind. Skin was closed with a running subcuticular stitch, bandages were applied. The patient was then allowed to wake up from anesthesia and transferred to the recovery unit.
[2023-08-10] VITALS (9 sets, daily range): BP systolic 102–154; BP diastolic 53–73; PULSE 46–74; RESP 11–18; TEMP 36–36.5; O2SAT 94–100; BMI 28.3
--- NOTE | 2023-08-10 07:26 | W.ANESPRE ---
General Info Date of Service Date Performed: 08/10/23 Height: 5 ft 4.75 in Weight: 76.657 kg Body Mass Index (BMI): 28.3 Surgical Procedure: Operation Date: 08/10/23 07:55 Proposed Procedure Side Surgeon p Excision Lipoma Shoulder Right Ron Girard MD Meds Allergies and Home Medications Allergies Allergy/AdvReac Type Severity Reaction Status Date / Time Sulfa (Sulfonamide Allergy Severe Rash Verified 08/10/23 07:22 Antibiotics) nitrofurantoin Allergy Intermediate Hives Verified 08/10/23 07:22 [From Macrobid] Home Medication Medication Instructions Recorded multivit with minerals-iron 18 1 ea PO DAILY 01/11/18 mg-folic ac 400 mcg-vit K 25 mcg tablet (Multi-Day Plus Minerals) lisinopril 10 mg tablet 10 mg PO DAILY #135 tab-caps 12/14/22 trazodone 50 mg tablet 50 mg PO hs prn #90 tab-caps 02/06/23 omega-3 fatty acids 1 cap PO DAILY 03/08/23 epinephrine 0.3 mg/0.3 mL 0.3 mg (0.3 mL) IM ONCE Only for 04/07/23 injection, auto-injector (EpiPen) severe allergic reactions #1 ea atorvastatin 10 mg tablet 10 mg PO DAILY #90 tabs 04/19/23 gabapentin 300 mg capsule 300 mg PO QHS #90 caps 04/19/23 hydrochlorothiazide 25 mg tablet 25 mg PO QAM #90 tabs 04/19/23 naproxen sodium 220 mg capsule 220 mg PO BID PRN 07/18/23 (Aleve) levothyroxine 112 mcg tablet 112 mcg PO .M-Sat, / tab Sun #90 07/23/23 (Synthroid) tabs Current Visit Medications: Current Medications Generic Name Dose Route Start Last Admin Trade Name Freq PRN Reason Stop Dose Admin Acetaminophen 1,000 mg 08/10/23 06:00 Acetaminophen 500 Mg Tab PO 08/10/23 23:59 PREOP LUIS EDUARDO Celecoxib 200 mg 08/10/23 06:00 Celecoxib 200 Mg Cap PO 08/10/23 23:59 PREOP LUIS EDUARDO Gabapentin 600 mg 08/10/23 06:00 Gabapentin 300 Mg Cap PO 08/10/23 23:59 PREOP LUIS EDUARDO Ringer's Solution 1,000 mls @ 80 mls/hr 08/10/23 06:00 IV 08/10/23 23:59 INFUSION [facility] IV Miscellaneous Supplies 1 each 08/10/23 06:00 Iv Access IV 08/10/23 23:59 DIRECTED LUIS EDUARDO Morphine Sulfate 2 mg 08/09/23 16:50 Morphine 4 Mg/Ml Syr IVP 09/08/23 16:49 Q1H PRN PRN Sodium Chloride 0 ml 08/10/23 06:00 Normal Saline Flush 10 Ml Syr IV 08/10/23 23:59 PRN PRN Sodium Chloride 0 ml 08/10/23 06:00 Normal Saline 10 Ml Vial IJ 08/10/23 23:59 DIRECTED PRN Sterile Water 0 ml 08/10/23 06:00 Water,Injection,Sterile 10 Ml Vial IJ 08/10/23 23:59 DIRECTED PRN Tramadol HCl 100 mg 08/09/23 16:50 Tramadol 50 Mg Tab PO 09/08/23 16:49 Q6H PRN PRN Pain PFSH Active Problems Active Problems: Problem Status Onset Code Lipoma of right shoulder D17.21 Tendinitis of both rotator cuffs M75.81, M75.82 Impacted cerumen, left ear H61.22 Chronic insomnia F51.04 Lipoma D17.9 Impaired fasting glucose 11/17/14 R73.01 Hypothyroidism E03.9 Hyperlipidemia E78.5 Granuloma 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 Essential hypertension 11/07/13 I10 Medical History Medical History Sensorineural hearing loss (SNHL) of both ears Macular hole, left eye Tendonitis of left rotator cuff Injected: 05/23/2019 Impacted cerumen of both ears Anemia (06/03/12) Depressive disorder Foot pain (11/13/12) Strain of right gastrocnemius muscle (12/17/17) Right-sided low back pain with right-sided sciatica Disorder of vitamin B12 (11/07/13) Surgical History Surgical History History of bilateral oophorectomy Status post cholecystectomy Ligation of fallopian tube Cholecystectomy Tobacco Smoking/Tobacco Use Status: Never Alcohol Alcohol Intake: current Alcohol intake frequency: holidays/special occasions only Substance Use Substance use: Never Substance use type: does not use Prental History History 2 Para 2 Hx # Term Pregnancies Multiple births Hx # Pregnancies Ectopic pregnancies AB induced Hx Number of Living Children AB spontaneous Vital Signs and Lab Results Lab Results Blood Type / Crossmatch: No Data to Display Complete Blood Count: No Data to Display Complete Metabolic Panel: No Data to Display Liver Function Panel: No Data to Display Coagulation Panel: No Data to Display Cardiac Panel: No Data to Display Arterial Blood Gas: No Data to Display Venous Blood Gas: No Data to Display Pancreas Panel: No Data to Display Thyroid Panel: No Data to Display Infectious Disease: No Data to Display Blood Cultures: No Data to Display Toxicology Panel: No Data to Display Anesthesia Assessment and Plan Anesthesia History Personal History: PONV Family History: No Family History of Anesthesia Complications Exercise Tolerance Exercise Tolerance: Metabolic Equivalents>4 Pertinent Negatives Pertinent Negatives: No Symptoms of GERD Cardiac & Pulmonary Exam Cardiac Exam: Normal S1/S2 Heart Sounds Pulmonary Exam: Clear Bilateral Breath Sounds Implantable Cardiac Device Does patient have a Pacemaker or an ICD?: No Airway Exam Known Difficult Airway: No Mallampati Class: 2 Mouth Opening: Normal (> 3cm) Thyromental Distance: Greater than 3 cm Neck Range of Motion: Full ROM Neck Circumference: Normal Teeth Condition: Normal Dentition ASA Classification ASA Score: ASA 2 NPO Status NPO Status: NPO Clears >2 hours, Solids >8 hours Anesthesia Plan Resuscitation Status: Full Code Anesthesia Technique: General Anesthesia Airway Planned: Endotracheal Tube Monitors Used: Standard Monitors and SedLine
[2023-08-10] MEDS: Celecoxib 200 MG CAP PO (07:28)
[2023-08-10] MEDS: Gabapentin 300 MG CAP 600 MG PO (07:28)
[2023-08-10] MEDS: Acetaminophen 500 MG TAB 1000 MG PO (07:28)
[2023-08-10] MEDS: Lactated Ringers 1,000 ML 80 ML IV (07:29)
--- NOTE | 2023-08-10 07:47 | W.ANESPRE ---
General Info Date of Service Date Performed: 08/10/23 Height: 5 ft 4.75 in Weight: 76.657 kg Body Mass Index (BMI): 28.3 Surgical Procedure: Operation Date: 08/10/23 07:55 Proposed Procedure Side Surgeon p Excision Lipoma Shoulder Right Ron Girard MD Meds Allergies and Home Medications Allergies Allergy/AdvReac Type Severity Reaction Status Date / Time Sulfa (Sulfonamide Allergy Severe Rash Verified 08/10/23 07:22 Antibiotics) nitrofurantoin Allergy Intermediate Hives Verified 08/10/23 07:22 [From Macrobid] Home Medication Medication Instructions Recorded multivit with minerals-iron 18 1 ea PO DAILY 01/11/18 mg-folic ac 400 mcg-vit K 25 mcg tablet (Multi-Day Plus Minerals) lisinopril 10 mg tablet 10 mg PO DAILY #135 tab-caps 12/14/22 trazodone 50 mg tablet 50 mg PO hs prn #90 tab-caps 02/06/23 omega-3 fatty acids 1 cap PO DAILY 03/08/23 epinephrine 0.3 mg/0.3 mL 0.3 mg (0.3 mL) IM ONCE Only for 04/07/23 injection, auto-injector (EpiPen) severe allergic reactions #1 ea atorvastatin 10 mg tablet 10 mg PO DAILY #90 tabs 04/19/23 gabapentin 300 mg capsule 300 mg PO QHS #90 caps 04/19/23 hydrochlorothiazide 25 mg tablet 25 mg PO QAM #90 tabs 04/19/23 naproxen sodium 220 mg capsule 220 mg PO BID PRN 07/18/23 (Aleve) levothyroxine 112 mcg tablet 112 mcg PO .M-Sat, / tab Sun #90 07/23/23 (Synthroid) tabs Current Visit Medications: Current Medications Generic Name Dose Route Start Last Admin Trade Name Freq PRN Reason Stop Dose Admin Acetaminophen 1,000 mg 08/10/23 06:00 08/10/23 07:28 Acetaminophen 500 Mg Tab PO 08/10/23 23:59 1,000 mg PREOP LUIS EDUARDO Administration Celecoxib 200 mg 08/10/23 06:00 08/10/23 07:28 Celecoxib 200 Mg Cap PO 08/10/23 23:59 200 mg PREOP LUIS EDUARDO Administration Gabapentin 600 mg 08/10/23 06:00 08/10/23 07:28 Gabapentin 300 Mg Cap PO 08/10/23 23:59 600 mg PREOP LUIS EDUARDO Administration Ringer's Solution 1,000 mls @ 80 mls/hr 08/10/23 06:00 08/10/23 07:29 IV 08/10/23 23:59 80 mls/hr INFUSION LUIS EDUARDO Administration IV Miscellaneous Supplies 1 each 08/10/23 06:00 Iv Access IV 08/10/23 23:59 DIRECTED LUIS EDUARDO Morphine Sulfate 2 mg 08/09/23 16:50 Morphine 4 Mg/Ml Syr IVP 09/08/23 16:49 Q1H PRN PRN Sodium Chloride 0 ml 08/10/23 06:00 Normal Saline Flush 10 Ml Syr IV 08/10/23 23:59 PRN PRN Sodium Chloride 0 ml 08/10/23 06:00 Normal Saline 10 Ml Vial IJ 08/10/23 23:59 DIRECTED PRN Sterile Water 0 ml 08/10/23 06:00 Water,Injection,Sterile 10 Ml Vial IJ 08/10/23 23:59 DIRECTED PRN Tramadol HCl 100 mg 08/09/23 16:50 Tramadol 50 Mg Tab PO 09/08/23 16:49 Q6H PRN PRN Pain PFSH Active Problems Active Problems: Problem Status Onset Code Lipoma of right shoulder D17.21 Tendinitis of both rotator cuffs M75.81, M75.82 Impacted cerumen, left ear H61.22 Chronic insomnia F51.04 Lipoma D17.9 Impaired fasting glucose 11/17/14 R73.01 Hypothyroidism E03.9 Hyperlipidemia E78.5 Granuloma 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 Essential hypertension 11/07/13 I10 Medical History Medical History Sensorineural hearing loss (SNHL) of both ears Macular hole, left eye Tendonitis of left rotator cuff Injected: 05/23/2019 Impacted cerumen of both ears Anemia (06/03/12) Depressive disorder Foot pain (11/13/12) Strain of right gastrocnemius muscle (12/17/17) Right-sided low back pain with right-sided sciatica Disorder of vitamin B12 (11/07/13) Surgical History Surgical History History of bilateral oophorectomy Status post cholecystectomy Ligation of fallopian tube Cholecystectomy Tobacco Smoking/Tobacco Use Status: Never Alcohol Alcohol Intake: current Alcohol intake frequency: holidays/special occasions only Substance Use Substance use: Never Substance use type: does not use Prental History History 2 Para 2 Hx # Term Pregnancies Multiple births Hx # Pregnancies Ectopic pregnancies AB induced Hx Number of Living Children AB spontaneous Vital Signs and Lab Results Vital Signs Most Recent Vital Signs in EMR: Most Recent Vital Signs Temp Pulse Resp BP Pulse Ox 36 C L 74 18 154/73 H 99 08/10/23 06:55 08/10/23 06:55 08/10/23 06:55 08/10/23 06:55 08/10/23 06:55 Lab Results Blood Type / Crossmatch: No Data to Display Complete Blood Count: No Data to Display Complete Metabolic Panel: No Data to Display Liver Function Panel: No Data to Display Coagulation Panel: No Data to Display Cardiac Panel: No Data to Display Arterial Blood Gas: No Data to Display Venous Blood Gas: No Data to Display Pancreas Panel: No Data to Display Thyroid Panel: No Data to Display Infectious Disease: No Data to Display Blood Cultures: No Data to Display Toxicology Panel: No Data to Display Anesthesia Assessment and Plan Anesthesia History Personal History: PONV Family History: No Family History of Anesthesia Complications Exercise Tolerance Exercise Tolerance: Metabolic Equivalents>4 Pertinent Negatives Pertinent Negatives: No Symptoms of GERD, No Major Pulmonary Symptoms or Complaints and No History of CVA/TIA Cardiac & Pulmonary Exam Cardiac Exam: Normal S1/S2 Heart Sounds Pulmonary Exam: Clear Bilateral Breath Sounds Implantable Cardiac Device Does patient have a Pacemaker or an ICD?: No Airway Exam Known Difficult Airway: No Mallampati Class: 2 Mouth Opening: Normal (> 3cm) Thyromental Distance: Greater than 3 cm Neck Range of Motion: Full ROM Neck Circumference: Normal Teeth Condition: Normal Dentition (Some missing) ASA Classification ASA Score: ASA 2 Emergency Case?: No NPO Status NPO Status: NPO Clears >2 hours, Solids >8 hours Anesthesia Plan Resuscitation Status: Full Code Anesthesia Technique: General Anesthesia Airway Planned: Endotracheal Tube Monitors Used: Standard Monitors
[2023-08-10] MEDS: Bupivacaine 0.25% Pres-Free 30 ML VIAL (08:44)
--- NOTE | 2023-08-10 08:45 | SOFT_PTH ---
PATIENT: Ling Byrd LOC: [facility] U#:[id number] AGE/SX: 68/F ROOM: RE08/10/[address]: Ron Girard MD : [id number] BED: DIS: 08/10/2023 SPEC #: [id number] RECD: 08/10/23 11:57 STATUS: EREN RE #: [id number] SARAH: 08/10/23 08:[address]: Ron Girard DEPT: Surgical Specimen RECD BY: Marcelina Graham ENTERED: 08/10/23 11:58 SP TYPE: SOFT OTHR DR: Elian Gamboa MD Tissues: 1 - SOFT TISSUE MISC (INC. LIPOMA) Procedures: GROSS AND MICRO LEVEL 3 Comments: [id number]
[2023-08-10] MEDS: fentaNYL 100 MCG/2 ML VIAL IVP (09:59)
--- NOTE | 2023-08-10 11:01 | W.ANESPOSTOP ---
Postoperative Evaluation Date, Time and Location Date Performed: 08/10/23 Time Performed: 11:01 Patient Location: Day Surgery Unit Vital Signs Most Recent Imported Vital Signs: Most Recent Vital Signs Temp Pulse Resp BP Pulse Ox 36.2 C L 46 L 16 153/61 H 100 08/10/23 10:50 08/10/23 10:50 08/10/23 10:50 08/10/23 10:50 08/10/23 10:50 Pain Score Most Recent Pain Score: Most Recent Pain Score Pain Level 2 08/10/23 10:50 Assessment Mental Status: Awake (Alert & Oriented to Patient Baseline) Airway and Respiratory Function: Patent airway with normal (patient baseline) respiratory exam Cardiovascular Function: Hemodynamically Stable Hydration Status: Adequately Hydrated Nausea & Vomiting: No Nausea or Vomiting Pain: Pt. Denies Any Pain Peripheral Nerve Block: Patient did not receive a nerve block
== END 2023-08-10 11:14 | disposition home or self-care (01) ==
LOC: SUR 06:50
PROVIDERS: PCP Family Medicine; Visit Provider Surgery
PROC: (CPT 23071; principal; 2023-08-10 07:45)
DX: D17.21 Benign lipomatous neoplasm of skin and subcutaneous tissue of right arm (principal)
CPT/HCPCS: 23071; 88304; J0665; J1100; J1885; J2001; J2405; J2704; J3010

== ENCOUNTER → 2023-08-21 13:16 | Outpatient (BNVA) | payer MEDICARE, SELFPAY | PROVIDERS: PCP Family Medicine; Referring Provider Family Medicine; Visit Provider Surgery | DX: Z48.89 Encounter for other specified surgical aftercare (principal) ==

== ENCOUNTER → 2023-09-03 14:19 | Outpatient (BNVA) | payer MEDICARE, SELFPAY | PROVIDERS: PCP Family Medicine; Referring Provider Family Medicine; Visit Provider Podiatrist | DX: L60.0 Ingrowing nail (principal); G25.81 Restless legs syndrome; I73.9 Peripheral vascular disease, unspecified; L60.3 Nail dystrophy; B35.1 Tinea unguium | CPT/HCPCS: 93922; 99214 ==

== ENCOUNTER → 2023-12-03 10:37 | Outpatient (BNVA) | payer MEDICARE, SELFPAY | PROVIDERS: PCP Family Medicine; Referring Provider Family Medicine; Visit Provider Podiatrist | DX: L60.0 Ingrowing nail (principal); G25.81 Restless legs syndrome; I73.9 Peripheral vascular disease, unspecified; L60.3 Nail dystrophy; B35.1 Tinea unguium; M79.672 Pain in left foot | CPT/HCPCS: 11765 ==

== ENCOUNTER 2024-01-11 09:25 | Outpatient (CLI) | payer MEDICARE, SELFPAY ==
[2024-01-11 08:41] LABS: Hemoglobin A1C 5.8 % (<5.7)
[2024-01-11 08:46] LABS: Anion Gap 8.9 mmol/L (3-11); BUN 17 mg/dL (7-18); CO2 29.1 mmol/L (21.0-32.0); CREATININE 0.8 mg/dL (0.55-1.02); Calcium 9.5 mg/dL (8.5-10.1); Calculated LDL 115 mg/dL (<100); Chloride 97 mmol/L (98-107); Cholesterol 182 mg/dL (<200); Estimated GFR 79.71 (mL/min/1.73m2); Glucose 105 mg/dL (74-106); HDL Cholesterol 46 mg/dL (40-60); Sodium 135 mmol/L (136-145); Triglyceride 106 mg/dL (<150)
== END 2024-01-11 09:26 | disposition home or self-care (01) ==
LOC: LBO 09:26
PROVIDERS: PCP Family Medicine; Visit Provider Family Medicine
DX: E87.1 Hypo-osmolality and hyponatremia; E11.51 Type 2 diabetes mellitus with diabetic peripheral angiopathy without gangrene
CPT/HCPCS: 36415; 80048; 80061; 83036; 84443

== ENCOUNTER 2024-03-17 02:20 | Outpatient (CLI) | payer MEDICARE, SELFPAY ==
--- NOTE | 2024-03-17 07:15 | DI.MAMMO_ITS ---
Exam(s) MAMMO SCREENING EXAM: MAMMO SCREENING CLINICAL HISTORY: screening,Z12.31 TECHNIQUE: Mammograms were interpreted according to the usual protocol including computer analysis w [employer] CAD system, tomosynthesis and C-view imaging. COMPARISON: 2014 through 2021 FINDINGS: The breasts are composed of scattered fibroglandular densities, Breast Density category B. No suspicious masses or suspicious microcalcifications are seen. No skin thickening or abnormal axillary lymph nodes are seen. There has been no significant change from prior exams. IMPRESSION: BI-RADS Category 1, Negative mammogram Yearly screening mammography is recommended. Breast Density - Category B, scattered fibroglandular densities. A negative radiographic report should not delay biopsy if a dominant or clinically suspicious mass is present. Up to ten percent of cancers are not identified on mammography. A negative report may reinforce clinical impression. Adenosis and dense breasts may obscure an underlying neoplasm. False positive reports average 6 to 10%. Patient will receive a letter notifying them of these results.
--- NOTE | 2024-03-17 08:00 | DI.DEXA_ITS ---
Exam(s) XR DEXA BONE DENSITY W/WO ADELA EXAM: XR DEXA BONE DENSITY W/WO ADELA CLINICAL HISTORY: bone density screening,SCREENING FOR OSTEOPOROSIS IN POSTMENOPAUSAL WOMAN, TECHNIQUE: COMPARISON: No exams were available for comparison FINDINGS: Lateral Spine Image: Unremarkable. No compression deformities identified. Left hip: Total T-Score: -0.1 Total Z-Score: 1.4 T- and Z-scores: Within normal limits. Lumbar Spine: Total T-Score: 0.5 Total Z-Score: 2.5 T- and Z-scores: Within normal limits. IMPRESSION: No evidence of osteoporosis.
== END 2024-03-17 02:40 ==
LOC: DI 02:20
PROVIDERS: PCP Family Medicine; Visit Provider Obstetrics & Gynecology
DX: Z12.31 Encounter for screening mammogram for malignant neoplasm of breast (principal); Z78.0 Asymptomatic menopausal state; Z13.820 Encounter for screening for osteoporosis
CPT/HCPCS: 77063; 77067; 77080

== ENCOUNTER 2024-04-15 18:54 | Outpatient (CLI) | payer MEDICARE, SELFPAY ==
[2024-04-15 16:08] LABS: Uric Acid 5.3 mg/dL (2.6-6.0)
[2024-04-15 22:28] LABS: Rheumatoid Factor <8.6 IU/mL (<12.0)
[2024-04-16 14:09] LABS: ANA Interpretation Negative (Negative)
== END 2024-04-15 18:55 | disposition home or self-care (01) ==
LOC: LBO 18:58
PROVIDERS: PCP Family Medicine; Visit Provider Family Medicine
DX: M25.539 Pain in unspecified wrist (principal); M10.9 Gout, unspecified; M19.90 Unspecified osteoarthritis, unspecified site
CPT/HCPCS: 36415; 84550; 86038; 86431

== ENCOUNTER 2024-05-09 13:29 | Outpatient (REF) | payer MEDICARE, SELFPAY ==
[2024-05-09 12:33] LABS: Bilirubin Negative (Negative); Blood Large (Negative); Clarity Cloudy (Clear); Glucose Negative (Negative); Ketones Negative (Negative); Leukocyte Esterase Moderate (Negative); Nitrite Negative (Negative); Specific Gravity 1.015 (1.005-1.025); Urobilinogen 0.2 mg/dL (Up to 0.2)
[2024-05-09 12:43] LABS: Bacteria Rare HPF (Negative); C & S Indicated? Yes; Crystals Negative HPF (Negative); Epithelial Cells Few HPF (Negative); Mucus Negative (Negative); RBC >50 HPF (0-2); WBC 20-50 HPF (0-5)
== END 2024-05-09 13:30 | disposition home or self-care (01) ==
LOC: LBN 13:29
PROVIDERS: PCP Family Medicine; Visit Provider Nurse Practitioner Family
DX: R35.0 Frequency of micturition (principal); R82.89 Other abnormal findings on cytological and histological examination of urine; B96.29 Other Escherichia coli [E. coli] as the cause of diseases classified elsewhere
CPT/HCPCS: 87077; 81003; 81015; 87086; 87186

== ENCOUNTER → 2024-05-12 10:50 | Outpatient (BNVA) | payer MEDICARE, SELFPAY | PROVIDERS: PCP Family Medicine; Referring Provider Family Medicine | DX: M65.4 Radial styloid tenosynovitis [de Quervain] (principal); M25.532 Pain in left wrist | CPT/HCPCS: 20550; J1010 ==

== ENCOUNTER 2024-05-15 00:41 | Outpatient (CLI) | payer MEDICARE, SELFPAY ==
--- NOTE | 2024-05-15 07:45 | DI.MRI_ITS ---
Exam(s) MR LUMBAR SPINE WO EXAM: MR LUMBAR SPINE WO CLINICAL HISTORY: worsening low back pain,degenerative lumbar spinal stenosis,m48.061. TECHNIQUE: Multiplanar multisequence MRI of the Lumbar spine was performed. COMPARISON: CR XR DEXA BONE DENSITY W/WO ADELA from 03/17/2024 There are no plain films of the lumbar spine available at the time of this MRI interpretation. FINDINGS: Five lumbar vertebrae are presumed. Conus medullaris is at normal level. There is no evidence of conus mass nor subjacent clumping of in trathecal nerve roots to suggest arachnoiditis. The distal thecal sac appears unremarkable.There is a Tarlov intra sacral cyst at the S2 level slightly right of center, this measuring 9 x 10 mm by 13 m m. Bones:There are no fractures nor ominous osseous lesions in the lumbar vertebral bodies and visualize d sacrum. With respect to the individual levels... T12-L1: Unremarkable L1-2: Normal disc height and signal. No disc herniation nor central canal stenosis.No foraminal steno sis L2-3: Moderate decreased disc height. Broad symmetrical annular bulging which flattens the anterior thecal sac. No distinct focal disc herniation. There is mild-moderate central canal stenosis due to broad annular bulging, short AP dimensions of the pedicles, and mild degenerative changes in the fac et joints. There is no foraminal stenosis on either side at this level. L3-4: There is chronic advanced disc space narrowing and anterior osseous lipping. Modic type 1 sub endplate marrow edema changes. There is broad annular bulging without a dominant disc herniation. T here is mild-moderate central canal stenosis (similar to L2-3 level) due to the broad annular bulging and short AP dimensions of the pedicles and mild degenerative changes in the facet joints. There is no significant foraminal stenosis. L4-5: This level also exhibits advanced chronic disc space narrowing and anterior osseous lipping. P osteriorly there is broad annular bulging which extends into the floor both exiting neural foramen. However, there does not appear to be significant foraminal stenosis with normal fat signal around the exiting nerve roots bilaterally at this level. Posteriorly there is slight indentation of the anter ior thecal sac by the bulging annulus with mild central canal stenosis (less than is evident at the 2 levels above). Minimal degenerative changes in the facet joints. L5-S1: This level exhibits preserved disc signal. Slight narrowing of the disc space is developmenta l and due to what appears to be sacralization of the L5 segment. There is no disc herniation at this level and no central canal stenosis nor foraminal stenosis. Facet joints unremarkable. Soft tissues: paraspinal soft tissues appear unremarkable. IMPRESSION: 1. Multilevel chronic degenerative disc disease with findings at L2-3, L3-4 and L4-5 levels as detail ed above. There is sacralization of the L5 segment. 2. There is mild-moderate central canal stenosis at the L2-3 and L3-4 levels and mild central canal s tenosis at L4-5. No central canal stenosis at L5-S1. 3. There is no significant foraminal stenosis in the lumbosacral spine. DATA REPOSITORY:
== END 2024-05-15 01:01 ==
LOC: DI 00:41
PROVIDERS: PCP Family Medicine; Visit Provider Family Medicine
DX: M48.061 Spinal stenosis, lumbar region without neurogenic claudication (principal)
CPT/HCPCS: 72148

== ENCOUNTER 2024-10-27 12:23 | Outpatient (CLI) | payer MEDICARE, SELFPAY ==
--- NOTE | 2024-10-27 11:15 | DI.RAD_ITS ---
Exam(s) XR HAND LT COMPLETE EXAM: XR HAND LT COMPLETE CLINICAL HISTORY: left wrist pain. TECHNIQUE: 2D digital imaging was performed of the left hand. Three views were obtained. AP, later al and oblique views were obtained. COMPARISON: No exams were available for comparison FINDINGS: BONES: No acute fracture is present. No bony destructive lesion is seen. JOINTS: No dislocation present. There is mild osteoarthritis characterized by joint space narrowing a nd osteophytes. The findings are seen in the interphalangeal joints of the fingers and the 1st CMC j oint. SOFT TISSUE: Normal. IMPRESSION: Mild degenerative changes of the left hand. DATA REPOSITORY: RADIATION DOSE DELIVERED:
== END 2024-10-27 12:24 | disposition home or self-care (01) ==
LOC: DIORS 12:24
PROVIDERS: PCP Family Medicine; Referring Provider Family Medicine; Visit Provider Physician Assistant
DX: M65.832 Other synovitis and tenosynovitis, left forearm; M19.032 Primary osteoarthritis, left wrist
CPT/HCPCS: 99214; 73130

== ENCOUNTER 2024-12-29 04:14 | Outpatient (CLI) | payer MEDICARE, SELFPAY ==
[2024-12-29 08:15] LABS: Hemoglobin A1C 5.7 % (<5.7)
[2024-12-29 08:16] LABS: BUN 19 mg/dL (7-18); CREATININE 0.6 mg/dL (0.55-1.02); Calcium 9.2 mg/dL (8.5-10.1); Calculated LDL 121 mg/dL (<100); Chloride 100 mmol/L (98-107); Cholesterol 179 mg/dL (<200); Glucose 103 mg/dL (74-106); HDL Cholesterol 50 mg/dL (>or=50); Potassium 4.3 mmol/L (3.5-5.1); Sodium 137 mmol/L (136-145); Triglyceride 41 mg/dL (<150)
== END 2024-12-29 04:15 | disposition home or self-care (01) ==
PROVIDERS: PCP Family Medicine; Visit Provider Family Medicine
DX: E87.1 Hypo-osmolality and hyponatremia (principal); R73.9 Hyperglycemia, unspecified; E78.5 Hyperlipidemia, unspecified; M65.932 Unspecified synovitis and tenosynovitis, left forearm; M65.4 Radial styloid tenosynovitis [de Quervain]
CPT/HCPCS: 99213; 36415; 80048; 80061; 83036

== ENCOUNTER 2025-01-20 02:07 | Outpatient (CLI) | payer MEDICARE, SELFPAY ==
--- NOTE | 2025-01-20 11:00 | DI.MRI_ITS ---
Exam(s) MR UPPER JOINT LT WO EXAM: MR UPPER JOINT LT WO CLINICAL HISTORY: PAIN,ARTHRITIS LT WRIST,M19.032. TECHNIQUE: Multiplanar multisequence MRI was performed. COMPARISON: plain films 27 October 2024 FINDINGS: Bones: There is no fracture or contusion. There is no appreciable joint effusion. There are scattered degenerative cysts. There are degenerative changes, greatest at the scaphoid trapezium joint. Degenerative changes also seen at the 1st carpal metacarpal joint. Ligaments: The TFCC is intact. Both the scapholunate and lunotriquetral ligaments are intact. Musculoskeletal Structures: There is no muscle atrophy. There are no muscular strains seen. The visualized median nerve appears to be within normal limits and is normally located within the carpal tunnel. There is edema and thickening of the extensor pollicis brevis and abductor pollicis longus tendons at the level and distal to the radial styloid. There is some surrounding soft tissue stranding but no focal ganglion cyst. No discrete tear is visible. IMPRESSION: Tendinosis of the extensor pollicis brevis and abductor pollicis longus tendons. Degenerative changes greatest at the 1st carpal metacarpal joint and scaphoid trapezium joints. DATA REPOSITORY:
== END 2025-01-20 02:27 ==
LOC: DI 02:07
PROVIDERS: PCP Family Medicine; Visit Provider Student in an Organized Health Care Education/Training Program
DX: M19.032 Primary osteoarthritis, left wrist (principal)
CPT/HCPCS: 73221

== ENCOUNTER → 2025-02-02 14:03 | Outpatient (BNVA) | payer MEDICARE, SELFPAY | PROVIDERS: PCP Family Medicine; Referring Provider Family Medicine; Visit Provider Student in an Organized Health Care Education/Training Program | DX: M65.4 Radial styloid tenosynovitis [de Quervain] (principal) | CPT/HCPCS: 99214 ==

== ENCOUNTER 2025-02-04 13:14 | Day surgery (SDC) | payer MEDICARE, SELFPAY ==
--- NOTE | 2025-02-04 12:21 | W.PM.DSUDISC ---
Date of service: 02/04/25 Discharge Plan Disposition Patient Disposition: Home Condition: Good Discharge Details Reason For Visit: [facility] Release Attending Provider: Oscar Corey Primary Care Provider: Elian Gamboa Home Meds and New Rx's Prescriptions: New hydrocodone-acetaminophen 5-325 mg tablet 1 tab PO Q6H PRN (Reason: pain) Qty: 6 0RF acetaminophen 500 mg tablet 500 mg PO TID Qty: 90 0RF Continued levothyroxine [Synthroid] 112 mcg tablet 112 mcg PO .M-Sat, 1/2 tab Sun Qty: 90 4RF Rx Instructions: 112 mcg Sunday-Sunday 56 mcg on Sundays omega-3 fatty acids [Fish Oil] 1 cap PO DAILY Multi-Day Plus Minerals 1 EACH tablet 1 ea PO DAILY atorvastatin 10 mg tablet 10 mg PO DAILY Qty: 90 3RF hydrochlorothiazide 25 mg tablet 25 mg PO QAM Qty: 90 4RF trazodone 100 mg tablet 150 mg PO hs prn Qty: 135 3RF Rx Instructions: for insomnia dose increase 07/22/24 lisinopril 10 mg tablet 15 mg PO DAILY Qty: 135 3RF ibuprofen 800 mg tablet 800 mg PO TID PRN (Reason: pain) Qty: 100 2RF ketoconazole 2 % cream 1 applic topical DAILY 90 Days Qty: 30 2RF Rx Instructions: Apply 1gram to toenails once daily, at a separate time from the Urea 40% gabapentin 300 mg capsule 300 mg PO QHS Qty: 90 1RF Discharge Instructions Additional Instructions: Dejennifer's Discharge Instructions Activity: You should keep the hand elevated as much as possible for the first few days. You may use the other fingers as tolerated but avoid trying to do too much too soon. You may perform light activities with the splint in place. Dressing/Cast: Your splint should stay in place at all times. Do NOT get it wet. You may loosen the THELMA wrap if you feel it is too tight and then rewrap more loosely. Medications: - You should take Tylenol and Ibuprofen for baseline pain control. - You have Hydrocodone for breakthrough pain. - You may apply ice over the thumb. Follow-up: 7-10 days Referrals: Oscar Corey MD [ [facility] STAFF PHYSICIAN, Orthopaedic Surgical] Activity:: Elevate Remove Dressings/Wound Care:: Do Not Remove Shower/Bathe:: Cover Diet:: As Tolerated Discharge Orders Discharge Orders: Discharge Order (Routine); Ordered 02/04/25 Ordered By: Alex Brand DS: Diagnosis Discharge Diagnosis (1) De Quervain's tenosynovitis, left: Status: Acute
[2025-02-04 13:50] VITALS: BP 147/74; PULSE 63; RESP 16; TEMP 36.1; O2SAT 98
[2025-02-04] MEDS: Acetaminophen 500 MG TAB 1000 MG PO (13:56)
[2025-02-04] MEDS: Celecoxib 200 MG CAP 400 MG PO (13:56)
--- NOTE | 2025-02-04 13:57 | W.ANESPRE ---
General Info Date of Service Date Performed: 02/04/25 Height: 5 ft 4 in Weight: 82.1 kg Body Mass Index (BMI): 31.0 Surgical Procedure: Operation Date: 02/04/25 16:10 Proposed Procedure Side Surgeon p Wrist Dequervains Release Left Oscar Corey MD Meds Allergies and Home Medications Allergies Allergy/AdvReac Type Severity Reaction Status Date / Time Sulfa (Sulfonamide Allergy Severe Rash Verified 02/04/25 13:48 Antibiotics) nitrofurantoin (From Allergy Intermediate Hives Verified 02/04/25 13:48 Macrobid) Home Medication ?Medication ?Instructions ?Recorded multivit with minerals-iron 18 1 ea PO DAILY 01/11/18 mg-folic ac 400 mcg-vit K 25 mcg tablet (Multi-Day Plus Minerals) omega-3 fatty acids 1 cap PO DAILY 03/08/23 atorvastatin 10 mg tablet 10 mg PO DAILY #90 tabs 06/28/24 hydrochlorothiazide 25 mg tablet 25 mg PO QAM #90 tabs 06/28/24 levothyroxine 112 mcg tablet 112 mcg PO .M-Sat, 1/2 tab Sun #90 07/22/24 (Synthroid) tabs lisinopril 10 mg tablet 15 mg (1.5 x 10 mg) PO DAILY #135 08/19/24 tab-caps trazodone 100 mg tablet 150 mg (1.5 x 100 mg) PO hs prn 08/19/24 #135 tab-caps ibuprofen 800 mg tablet 800 mg PO TID PRN pain #100 tabs 09/29/24 ketoconazole 2 % topical cream 1 applic topical DAILY fungal 10/07/24 nails 3 months #30 grams gabapentin 300 mg capsule 300 mg PO QHS #90 caps 12/08/24 acetaminophen 500 mg tablet 500 mg PO TID #90 tabs 02/04/25 hydrocodone 5 mg-acetaminophen 325 1 tab PO Q6H PRN pain #6 tabs 02/04/25 mg tablet Current Visit Medications: Current Medications Generic Name Dose Route Start Last Admin Trade Name Freq PRN Reason Stop Dose Admin Acetaminophen 1,000 mg 02/04/25 06:00 02/04/25 13:56 Acetaminophen 500 Mg Tab PO 02/04/25 23:59 1,000 mg PREOP LUIS EDUARDO Administration Acetaminophen 650 mg 02/04/25 12:20 Acetaminophen 325 Mg Tab PO 03/06/25 12:19 Q4H PRN PRN Hydrocodone Bitart/Acetaminophen 0 tab 02/04/25 12:20 Hydrocodone 5/Acetaminophen 325 Tab PO 03/06/25 12:19 Q3H PRN PRN Pain Celecoxib 400 mg 02/04/25 06:00 02/04/25 13:56 Celecoxib 200 Mg Cap PO 02/04/25 23:59 400 mg PREOP LUIS EDUARDO Administration Ringer's Solution 1,000 mls @ 80 mls/hr 02/04/25 06:00 IV 02/04/25 23:59 INFUSION LUIS EDUARDO Cefazolin Sodium/Dextrose 2 gm in 50 mls @ 100 mls/hr 02/04/25 06:00 Ancef Duplex IVPB 02/04/25 23:59 PREOP LUIS EDUARDO IV Miscellaneous Supplies 1 each 02/04/25 06:00 Iv Access IV 02/04/25 23:59 DIRECTED LUIS EDUARDO Sodium Chloride 0 ml 02/04/25 06:00 Normal Saline Flush 10 Ml Syr IV 02/04/25 23:59 PRN PRN Sodium Chloride 0 ml 02/04/25 06:00 Normal Saline 10 Ml Vial IJ 02/04/25 23:59 DIRECTED PRN Sterile Water 0 ml 02/04/25 06:00 Water,Injection,Sterile 10 Ml Vial IJ 02/04/25 23:59 DIRECTED PRN PFSH Active Problems Active Problems: Problem Status Onset Code Extensor tenosynovitis of left wrist Acute M65.932 Varicose veins of lower extremity Acute I83.90 Arthritis of left wrist Acute M19.032 Extensor intersection syndrome of left wrist Acute M65.832 De Quervain's tenosynovitis, left Acute M65.4 Left wrist pain Acute M25.532 Low back pain Acute M54.50 Degenerative lumbar spinal stenosis Acute M48.061 Wrist pain Acute M25.539 Pain in left foot Acute M79.672 Ingrown toenail Acute L60.0 Restless legs Acute G25.81 Nail dystrophy Acute L60.3 Onychomycosis Acute B35.1 Lipoma of right shoulder Acute D17.21 Tendinitis of both rotator cuffs Acute M75.81, M75.82 Impacted cerumen, left ear Acute H61.22 Chronic insomnia Acute F51.04 Lipoma Acute D17.9 Anemia Chronic 06/03/12 D64.9 Impaired fasting glucose Acute 11/17/14 R73.01 Hypothyroidism Acute E03.9 Hyperlipidemia Acute E78.5 Granuloma annulare Acute 11/17/14 L92.0 Essential hypertension Acute 11/07/13 I10 Disorder of vitamin B12 Acute 11/07/13 E53.8 Medical History Medical History Sensorineural hearing loss (SNHL) of both ears Macular hole, left eye Tendonitis of left rotator cuff Injected: 05/23/2019 Impacted cerumen of both ears Depressive disorder Foot pain (11/13/12) Strain of right gastrocnemius muscle (12/17/17) Right-sided low back pain with right-sided sciatica Surgical History Surgical History H/O local excision of skin lesion (~07/2023) R shoulder mass History of bilateral oophorectomy pt denies Status post cholecystectomy Ligation of fallopian tube Cholecystectomy Tobacco Smoking/Tobacco Use Status: Never Passive smoking exposure: Yes Alcohol Alcohol Intake: current Alcohol intake frequency: holidays/special occasions only Substance Use Substance use: Never Substance use type: does not use Prental History History 2 Para 2 Hx # Term Pregnancies Multiple births Hx # Pregnancies Ectopic pregnancies AB induced Hx Number of Living Children AB spontaneous Vital Signs and Lab Results Vital Signs Most Recent Vital Signs in EMR: Most Recent Vital Signs Temp Pulse Resp BP Pulse Ox 36.1 C L 63 16 147/74 H 98 02/04/25 13:50 02/04/25 13:50 02/04/25 13:50 02/04/25 13:50 02/04/25 13:50 Imaging and Studies Imaging and Studies Study information below may be from another EMR and interpreted by another provider. Please see original notes in EMR for more complete details. EKG Summary: 03/28/22: Exam: Resting ECG Reason for Exam: Pre - Op emergency surgery Patient Location: O HR:81 bpm ECG Measurements Heart Rate 81 AXIS MS 160 P 73 QRSd 90 QRS 34 QT 382 T55 QTc 444 Conclusion Sinus rhythm...normal P axis, V-rate 50- 99 Baseline wander in lead(s) V1 Otherwise normal Anesthesia Assessment and Plan Anesthesia History Personal History: PONV Family History: No Family History of Anesthesia Complications Exercise Tolerance Exercise Tolerance: Metabolic Equivalents>4 Pertinent Negatives Pertinent Negatives: No Symptoms of GERD, No Major Cardiovascular Symptoms or Complaints and No Major Pulmonary Symptoms or Complaints Cardiac & Pulmonary Exam Cardiac Exam: Normal S1/S2 Heart Sounds Pulmonary Exam: Clear Bilateral Breath Sounds Implantable Cardiac Device Does patient have a Pacemaker or an ICD?: No Airway Exam Known Difficult Airway: No Mallampati Class: 2 Mouth Opening: Normal (> 3cm) Thyromental Distance: Greater than 3 cm Neck Range of Motion: Full ROM Neck Circumference: Normal Teeth Condition: Normal Dentition (Some missing) ASA Classification ASA Score: ASA 2 Emergency Case?: No NPO Status NPO Status: NPO Clears >2 hours, Solids >8 hours Anesthesia Plan Resuscitation Status: Full Code Anesthesia Technique: General Anesthesia Airway Planned: Natural Airway Monitors Used: Standard Monitors Preoperative Comments:: Denies GERD symptoms
[2025-02-04] MEDS: Lactated Ringers 1,000 ML 80 ML IV (14:09)
[2025-02-04 14:11] VITALS: BMI 31.0
[2025-02-04] MEDS: ceFAZolin 2 GM/50 ML BAG IVPB (15:14)
[2025-02-04] MEDS: Lidocaine 1% Multi-Dose W/EPI 1/100,000 50 ML VIAL (15:19)
[2025-02-04] MEDS: Sodium Bicarbonate 50 MEQ/50 ML VIAL (15:19)
[2025-02-04 15:39] VITALS: BP 121/64; PULSE 62; RESP 16; TEMP 36.3; O2SAT 97
--- NOTE | 2025-02-04 16:10 | W.ANESPOSTOP ---
Postoperative Evaluation Date, Time and Location Date Performed: 02/04/25 Time Performed: 15:40 Patient Location: Day Surgery Unit Vital Signs Most Recent Imported Vital Signs: Most Recent Vital Signs Temp Pulse Resp BP Pulse Ox 36.3 C L 62 16 121/64 97 02/04/25 15:39 02/04/25 15:39 02/04/25 15:39 02/04/25 15:39 02/04/25 15:39 Pain Score Most Recent Pain Score: Most Recent Pain Score Pain Level 0 02/04/25 15:39 Assessment Mental Status: Awake (Alert & Oriented to Patient Baseline) Airway and Respiratory Function: Patent airway with normal (patient baseline) respiratory exam Cardiovascular Function: Hemodynamically Stable Hydration Status: Adequately Hydrated Nausea & Vomiting: No Nausea or Vomiting Pain: Pt. Denies Any Pain Peripheral Nerve Block: Patient did not receive a nerve block
[2025-02-04 16:15] VITALS: BP 146/76; PULSE 57; RESP 16; TEMP 36.1; O2SAT 99
--- NOTE | 2025-02-04 17:03 | W.PM.OP ---
Operative Note Operative Note PRE-OP DIAGNOSIS: Left Dequervain's Tenosynovitis POST-OP DIAGNOSIS: same PROCEDURE: Left First Extensor Compartment Release SURGEON: Oscar Corey ANESTHESIA TYPE: General:No Airway Refer to Anesthesia Record ESTIMATED BLOOD LOSS: 0 PATHOLOGY: none sent TOURNIQUET TIME: 13 COMPLICATIONS: None Patient was transported to: same day Patient's condition: stable Indications: Carl is a 70 year old female who has had symptoms of Dequervain's tenosynovitis. Nonoperative treatment options had been trialed. Given their failure, I offered operative intervention. I reviewed the technical details of a first extensor compartment release. I reviewed the risk of the procedure to include bleeding, infection, pain, stiffness, tendon instability, damage to the superficial radial nerve, and complete release. Despite these risks, the patient elected to proceed. Findings: There was a tightened first excessive compartment. No subcompartments were seen encasing the EPB tendon. There were 3 main slips of APL tendon. Procedure Description: Carl was greeted in the preoperative holding area. Name and surgical site were confirmed. The history and physical was completed. The consent was reviewed the patient and signed. She was taken back to the operating room. The patient was placed in the supine position and monitored anesthesia care was initiated. The left was then prepped with ChloraPrep and draped in a standard fashion after a nonsterile tourniquet was placed high up onto the arm. Prophylactic antibiotics in the form of cefazolin were administered. A timeout was performed for safe surgery. The surgical site was drawn on the skin. The planned surgical field was anesthetized with 0.25% bupivacaine with epinephrine. The limb was exsanguinated and the tourniquet was inflated where it stayed for 13 minutes. A 2 cm incision was made longitudinally over the radial styloid. The skin was incised only. The deep tissue and subcutaneous fat was dissected with a tenotomy scissors protecting branches of the superficial radial nerve. Any branches that were identified were retracted out of the way. The first compartment extensor tendons were then identified. The distal aspect of the first compartment was noted and were released. This release was performed more on the dorsal side to prevent tendon subluxation. The entirety of the first extensor compartment was then released. The slips of the abductor pollicis longus tendon were inspected. They removed to confirm the appropriate motion of the thumb. The extensor pollicis brevis tendon was then identified. There were no subcompartments. Traction on the tendon was also used to confirm appropriate extension of the thumb confirming the release of the appropriate tendon. The dorsal radial surface of the radius was once again inspected to make sure there is no other sub-compartments or other restrictions to tendon motion. The wound was then thoroughly irrigated. The deep tissue was closed with a 3-0 Vicryl. The skin was closed with a running subjective 4-0 Monocryl. Skin glue was applied. The tourniquet is released without significant bleeding. The hand was dressed with 4 x 4's, Kerlex and THELMA wrap into a soft thumb spica splint. All counts were correct. Patient was transferred back to same day surgery area in stable condition. Date of Procedure: 02/04/25
== END 2025-02-04 16:43 | disposition home or self-care (01) ==
LOC: SUR 13:15
PROVIDERS: PCP Family Medicine; Visit Provider Student in an Organized Health Care Education/Training Program
PROC: (CPT 25000; principal; 2025-02-04 16:00)
DX: M65.4 Radial styloid tenosynovitis [de Quervain] (principal)
CPT/HCPCS: 25000; J0690; J1100; J1885; J2003; J2004; J2405; J2704; J3010

== ENCOUNTER → 2025-02-13 08:34 | Outpatient (BNVA) | payer MEDICARE, SELFPAY | PROVIDERS: PCP Family Medicine; Referring Provider Family Medicine; Visit Provider Physician Assistant | DX: Z47.89 Encounter for other orthopedic aftercare (principal); M65.932 Unspecified synovitis and tenosynovitis, left forearm | CPT/HCPCS: 99024 ==

== ENCOUNTER → 2025-03-13 08:06 | Outpatient (BNVA) | payer MEDICARE, SELFPAY | PROVIDERS: PCP Family Medicine; Referring Provider Family Medicine; Visit Provider Physician Assistant | DX: Z47.89 Encounter for other orthopedic aftercare (principal); M65.932 Unspecified synovitis and tenosynovitis, left forearm | CPT/HCPCS: 99024 ==

== ENCOUNTER 2025-03-18 17:09 | Outpatient (CLI) | payer MEDICARE, SELFPAY ==
--- NOTE | 2025-03-18 15:00 | DI.MAMMO_ITS ---
Exam(s) MAMMO SCREENING EXAM: MAMMO SCREENING CLINICAL HISTORY: screening TECHNIQUE: Mammograms were interpreted according to the usual protocol including computer analysis with CAD system, tomosynthesis and C-view imaging. COMPARISON: 2016 through 2023 FINDINGS: The breasts are composed of mainly fatty density , Breast Density category A. No suspicious masses or suspicious microcalcifications are seen. No skin thickening or abnormal axillary lymph nodes are seen. There has been no significant change from prior exams. IMPRESSION: BI-RADS Category 1, Negative mammogram Yearly screening mammography is recommended. Breast Density- Category A - The breast are almost entirely fatty. Breast density Category C or D implies that the patient has dense breast tissue. Dense breast tissue can make it harder to find cancer on a mammogram. Dense breast tissue is also associated with an increased risk of breast cancer. This information about the result of the mammogram report was provided to the patient to raise their awareness. Use this report when you speak with the patient about their risks for breast cancer, which includes their family history. At that time, you may recommend additional screening tests (Ultrasound or MRI) as these tests may add significant information. A negative radiographic report should not delay biopsy if a dominant or clinically suspicious mass is present. Up to ten percent of cancers are not identified on mammography. A negative report may reinforce clinical impression. Adenosis and dense breasts may obscure an underlying neoplasm. False positive reports average 6 to 10%. Patient will receive a letter notifying them of these results.
== END 2025-03-18 17:29 ==
LOC: DI 17:09
PROVIDERS: PCP Family Medicine; Visit Provider Obstetrics & Gynecology
DX: Z12.31 Encounter for screening mammogram for malignant neoplasm of breast (principal); R92.313 Mammographic fatty tissue density, bilateral breasts
CPT/HCPCS: 77063; 77067